=== PATIENT | male | born 1945 ===

== ENCOUNTER 2016-08-26 17:01 | Emergency (ER) | payer MEDICARE, OTHER ==
[2016-08-26 17:17] VITALS: BP 117/62; PULSE 79; RESP 16; TEMP 97.8; O2SAT 94
[2016-08-26] MEDS ORDERED: Tmp-Smz 800 mg-160 mg DS Tab PO STA (17:45)
[2016-08-26] MEDS ORDERED: TDAP Vaccine 0.5 mL Syr IM ONE (17:45)
--- NOTE | 2016-08-26 18:01 | ED PDOC ---
Upper Extremity Pain/Injury Time Seen by Provider: 08/26/16 17:41 Chief Complaint (Nursing): Abnormal Skin Integrity Chief Complaint (Provider): Left Forearm Laceration History Per: Patient History/Exam Limitations: no limitations Onset/Duration Of Symptoms: Days (sustained last night (>24hrs [employer])) Current Symptoms Are (Timing): Still Present Additional Complaint(s): Eddie Aly is a 71 year old right hand dominant male, who presents to the ED on 08/26/16 for the evaluation of a laceration on his left forearm, sustained last night when he was taking out the garbage and cut arm on piece of wire that was sticking out. Injury occurred yesterday at 4 pm, no medical attention was sought yesterday at time of injury. PMD: Dr. Cazares Past Medical History Reviewed: Historical Data, Nursing Documentation, Vital Signs Vital Signs: Last Vital Signs Temp 97.8 F 08/26/16 17:15 Pulse 79 08/26/16 17:15 Resp 16 08/26/16 17:15 BP 117/62 08/26/16 17:15 Pulse Ox 94 L 08/26/16 17:15 - Medical History PMH: Anxiety, Arthritis, Asthma, CAD, COPD, CVA, Diabetes (type II), Emphysema, HTN, Hypercholesterolemia, Migraine Other PMH: vertigo, syncope - Surgical History Surgical History: Cholecystectomy, Coronary Stent (5 stents) - Family History Family History: States: No Known Family Hx - Living Arrangements Living Arrangements: With Family - Social History Current smoker - smoking cessation education provided: Yes (occasional) Alcohol: None Drugs: Denies - Immunization History Hx Tetanus Toxoid Vaccination: Yes (2015 per previous documentation) - Home Medications Home Medications: Ambulatory Orders Medication Instructions Recorded Aspirin [Aspirin EC] 81 mg PO DAILY 05/19/15 Clopidogrel [Plavix] 75 mg PO DAILY 05/19/15 Sitagliptin Phosphate [Januvia] 50 mg PO DAILY 05/19/15 Valsartan [Diovan] 40 mg PO DAILY 05/19/15 Tramadol HCl [Ultram] 50 mg PO BID PRN #30 tablet 08/12/15 [place]-3 Acid Ethyl Esters [Lovaza] 1 cap PO DAILY 08/13/15 Simvastatin [Zocor] 1 tab PO DAILY 08/13/15 Albuterol HFA [Ventolin HFA 90 2 puff IH Q4 PRN #1 unit 03/10/16 mcg/actuation (8 g)] Azithromycin [Zithromax] 250 mg PO DAILY #6 tab 03/10/16 DiphenhydrAMINE [Benadryl] 25 mg PO TID #12 cap 03/10/16 Triamcinolone Acetonide [Nasacort 1 spray NS DAILY #1 unit 03/10/16 Allergy 24Hr] Sulfamethoxazole/Trimethoprim 1 tab PO BID #14 tab 08/26/16 [Bactrim DS 800 mg-160 mg] - Allergies Allergies/Adverse Reactions: Allergies Allergy/AdvReac Type Severity Reaction Status Date / Time Penicillins Allergy RASH Verified 08/26/16 17:14 Review of Systems ROS Statement: Except As Marked, All Systems Reviewed And Found Negative Constitutional: Negative for: Fever Musculoskeletal: Positive for: Arm Pain (laceration to left forearm sustained yesterday) Physical Exam - Reviewed Nursing Documentation Reviewed: Yes Vital Signs Reviewed: Yes - Physical Exam Appears: Positive for: Well, Non-toxic, No Acute Distress Skin: Negative for: Rash Eye Exam: Positive for: Normal appearance Extremity: Positive for: Normal ROM (FROM of all joints of right arm), Capillary Refill (<2 seconds, neurovascularly intact), Other (3.0 cm superficial /horizontal laceration noted to volar aspect of left forearm; no active bleeding , N/V intact) Neurologic/Psych: Positive for: Alert, Oriented. Negative for: Motor/Sensory Deficits - ECG O2 Sat by Pulse Oximetry: 94 (RA) Pulse Ox Interpretation: Normal Medical Decision Making Medical Decision Makin:41 Initial Impression: forearm laceration Initial Plan: * Bactrim 1 tab PO Unable to repair wound with sutures as injury occurred >24 hours prior to arrival and suturing at this time would increase risk of infection. Procedure Note: Laceration was cleansed with both normal saline and betadine, steri-strips were used to approximate wound edges. Patient tolerated procedure well with no immediate complications. 18:42 Patient is medically stable and requires no further treatment in the ED at this time. Patient will be discharged home with Rx for Bactrim and instructions to take OTC tylenol for pain. Counseling was provided and all questions were answered regarding diagnosis and need for follow up with his PMD. There is agreement to discharge plan. Return if symptoms persist or worsen. Clinical Impression: arm laceration Scribe Attestation: Documented by Yancy Kwon, acting as a scribe for Michell Downs PA-C. Provider Scribe Attestation: All medical record entries made by the Scribe were at my direction and personally dictated by me. I have reviewed the chart and agree that the record accurately reflects my personal performance of the history, physical exam, medical decision making, and the department course for this patient. I have also personally directed, reviewed, and agree with the discharge instructions and disposition. Disposition - Clinical Impression Clinical Impression: Arm laceration - Patient ED Disposition Is Patient to be Admitted: No Counseled Patient/Family Regarding: Diagnosis, Need For Followup, Rx Given - Disposition Referrals: Ze Cazares MD [Primary Care Provider] - Disposition: Routine/Home Disposition Time: 18:42 Condition: STABLE Additional Instructions: Keep wound clean and dry. Allow steri-strips to fall off on their own. Tylenol as needed for pain. Wound check in 2-3 days with primary care doctor or return any time to ED if acutely worse. Prescriptions: Sulfamethoxazole/Trimethoprim [Bactrim DS 800 mg-160 mg] 1 tab PO BID #14 tab Instructions: Laceration (ED), Steristrips (ED)
[2016-08-26] MEDS ORDERED: Tmp-Smz 800 mg-160 mg DS Tab ONE (18:39)
== END 2016-08-26 19:50 | disposition home or self-care (01) ==
LOC: H.ER 17:01
DX: S41.112A Laceration without foreign body of left upper arm, initial encounter (principal); W22.8XXA Striking against or struck by other objects, initial encounter; Y92.008 Other place in unspecified non-institutional (private) residence as the place of occurrence of the external cause; E11.9 Type 2 diabetes mellitus without complications; E78.00 Pure hypercholesterolemia, unspecified; F17.200 Nicotine dependence, unspecified, uncomplicated; F41.9 Anxiety disorder, unspecified; I10 Essential (primary) hypertension; I25.10 Atherosclerotic heart disease of native coronary artery without angina pectoris; Z86.73 Personal history of transient ischemic attack (TIA), and cerebral infarction without residual deficits; Z88.0 Allergy status to penicillin; Z95.5 Presence of coronary angioplasty implant and graft; Z79.82 Long term (current) use of aspirin; J44.9 Chronic obstructive pulmonary disease, unspecified

== ENCOUNTER 2016-10-02 12:52 | Observation (INO) | payer MEDICARE, OTHER ==
[2016-10-02] MEDS ORDERED: Albuterol-Ipratrop 3 mg / 0.5 (3 ml) UD IH STA ×2 (13:44→13:45)
--- NOTE | 2016-10-02 13:49 | ED PDOC ---
HPI: CCC, URI, Sore Throat Time Seen by Provider: 10/02/16 13:28 Chief Complaint (Nursing): Cough, Cold, Congestion Chief Complaint (Provider): Cough History Per: Patient History/Exam Limitations: no limitations Have you had recent travel within the past 21 days to any of the following countries: [place], [place], [place] or [place]?: No Onset/Duration Of Symptoms: Days (3wks) Current Symptoms Are (Timing): Still Present Associated Symptoms: Sore Throat, Cough, Sputum, Other (SOB) Additional Complaint(s): The pt is a 71yo female with Hx of COPD, presents to the ED for evaluation of a productive cough with thick, white sputum present for the past 3 weeks. Pt reports using inhalers, steroids as well as antibiotics with no improvement. Currently, pt denies any other medical complaints. Past Medical History Reviewed: Historical Data, Nursing Documentation, Vital Signs Vital Signs: Last Vital Signs Temp 97.5 F L 10/02/16 13:23 Pulse 75 10/02/16 13:23 Resp 20 10/02/16 13:23 BP 111/54 L 10/02/16 13:23 Pulse Ox 94 L 10/02/16 13:51 - Medical History PMH: Anxiety, Arthritis, Asthma, CAD, COPD, CVA, Diabetes (type II), Emphysema, Gall Bladder Disease, HTN, Hypercholesterolemia, Migraine, Pneumonia Denies: Alzheimer's Disease, Anemia, Atrial Fibrillation, Bipolar Disorder, Bronchitis, Cardia Arrhythmia, CHF, Crohn's Disease, Dementia, Depression, Diverticulitis, Fractures, Gastritis, HIV, Hyperthyroidism, Hypothyroidism, Kidney Stones, Mitral Valve Prolapse, Multiple Sclerosis, Osteoporosis, Pancreatitis, Paranoia, Parkinson's Disease, Peripheral Edema, Post Traumatic Stress Disorder, Pulmonary Embolism, Chronic Kidney Disease, Rheumatoid Arthritis, Schizophrenia, Seizures, Sickle Cell Disease, Sexually Transmitted Disease, Sleep Apnea, TIA - Surgical History Surgical History: Cholecystectomy, Coronary Stent (5 stents) Denies: Appendectomy, CABG, Carotid Endarterectomy, Pacemaker, Tonsillectomy - Family History Family History: States: Unknown Family Hx - Immunization History Hx Tetanus Toxoid Vaccination: Yes (2015 per previous documentation) - Home Medications Home Medications: Ambulatory Orders Medication Instructions Recorded Aspirin [Aspirin EC] 81 mg PO DAILY 05/19/15 Clopidogrel [Plavix] 75 mg PO DAILY 05/19/15 Sitagliptin Phosphate [Januvia] 50 mg PO DAILY 05/19/15 Valsartan [Diovan] 40 mg PO DAILY 05/19/15 Tramadol HCl [Ultram] 50 mg PO BID PRN #30 tablet 08/12/15 [place]-3 Acid Ethyl Esters [Lovaza] 1 cap PO DAILY 08/13/15 Simvastatin [Zocor] 1 tab PO DAILY 08/13/15 Albuterol HFA [Ventolin HFA 90 2 puff IH Q4 PRN #1 unit 03/10/16 mcg/actuation (8 g)] Azithromycin [Zithromax] 250 mg PO DAILY #6 tab 03/10/16 DiphenhydrAMINE [Benadryl] 25 mg PO TID #12 cap 03/10/16 Triamcinolone Acetonide [Nasacort 1 spray NS DAILY #1 unit 03/10/16 Allergy 24Hr] Sulfamethoxazole/Trimethoprim 1 tab PO BID #14 tab 08/26/16 [Bactrim DS 800 mg-160 mg] - Allergies Allergies/Adverse Reactions: Allergies Allergy/AdvReac Type Severity Reaction Status Date / Time Penicillins Allergy RASH Verified 10/02/16 13:23 Review of Systems ROS Statement: Except As Marked, All Systems Reviewed And Found Negative Respiratory: Positive for: Cough, Shortness of Breath, Sputum Physical Exam - Reviewed Nursing Documentation Reviewed: Yes Vital Signs Reviewed: Yes - Physical Exam Appears: Positive for: Well, Non-toxic, Uncomfortable Head Exam: Positive for: ATRAUMATIC, NORMAL INSPECTION, NORMOCEPHALIC Skin: Positive for: Normal Color Eye Exam: Positive for: Normal appearance Neck: Positive for: Normal, Supple Cardiovascular/Chest: Positive for: Regular Rate, Rhythm Respiratory: Positive for: Rhonchi (scattered), Wheezing (b/l expitory), Respiratory Distress (mild) Gastrointestinal/Abdominal: Positive for: Normal Exam Back: Positive for: Normal Inspection Extremity: Positive for: Normal ROM Neurologic/Psych: Positive for: Alert, Oriented - ECG O2 Sat by Pulse Oximetry: 94 (RA) Medical Decision Making Medical Decision Making: Time: 1350 Impression: Cough, URI Plan: * VBG * CBC * Duoneb 3ml INH * Solumedrol 125 mg IVP * Reassess Scribe Attestation: Documented by Renate Hoyt acting as a scribe for Jonathon Menjivar MD. Provider Attestation: All medical record entries made by the Scribe were at my direction and personally dictated by me. I have reviewed the chart and agree that the record accurately reflects my personal performance of the history, physical exam, medical decision making, and the department course for this patient. I have also personally directed, reviewed, and agree with the discharge instructions and disposition. Disposition - Clinical Impression Clinical Impression: Bronchitis, COPD exacerbation - Patient ED Disposition Is Patient to be Admitted: Yes - Disposition Disposition Time: 14:44 Condition: FAIR - Pt Status Changed To: Hospital Disposition Of: Observation - POA Present On Arrival: None
[2016-10-02] MEDS ORDERED: Albuterol-Ipratrop 3 mg / 0.5 (3 ml) UD ONE (13:54)
[2016-10-02 14:12] LABS: BASO # 0.1 K/uL (0.0-0.2); BASO % 0.7 % (0.0-2.0); EOS # 0.3 K/uL (0.0-0.7); EOS % 3.5 % (0.0-4.0); LYMPH % 19.9 % (20.0-40.0); MEAN CELL VOLUME 85.5 fl (80.0-94.0); MEAN CORPUSCULAR HEMOGLOBIN 27.9 pg (27.0-31.0); MEAN CORPUSCULAR HGB CONC 32.7 g/dL (33.0-37.0); MEAN PLATELET VOLUME 9.1 fl (7.2-11.7); MONO # 0.8 K/uL (0.0-0.8); NEUT # 6.8 K/uL (1.8-7.0); NEUT % 67.9 % (50.0-75.0)
[2016-10-02 14:23] LABS: VENOUS BLOOD GAS BASE EXCESS 5.1 mmol/L (0.0-2.0); VENOUS BLOOD GAS PCO2 57 mmHg (40-60); VENOUS BLOOD PH 7.36 (7.32-7.43)
[2016-10-02] MEDS ORDERED: Azithromycin 500 MG in Sodium Chloride 0.9% 250 ML IVPB STA (14:40)
[2016-10-02] MEDS ORDERED: Promethazine 6.25 MG/5 ML CUP PO PRN (14:45)
[2016-10-02 14:49] LABS: ALB/GLOB RATIO 1.7 (1.0-2.1); BILIRUBIN,TOTAL 0.2 mg/dl (0.2-1.3); CALCIUM 9.5 mg/dL (8.4-10.2); POTASSIUM 4.2 MMOL/L (3.6-5.0); TOTAL PROTEIN 7.4 G/DL (6.3-8.2)
--- NOTE | 2016-10-02 15:10 | RAD ---
HISTORY: sob cough COMPARISON: Comparison chest 03/10/2016. TECHNIQUE: Chest PA and lateral FINDINGS: LUNGS: Mild bibasilar atelectasis right greater than left. Developing right lower lobe infiltrate could be excluded followup radiographs. . PLEURA: No significant pleural effusion identified. No pneumothorax apparent. CARDIOVASCULAR: Normal. OSSEOUS STRUCTURES: Mild multilevel degenerative spondylosis of the thoracic spine alba VISUALIZED UPPER ABDOMEN: Normal. OTHER FINDINGS: None. IMPRESSION: Mild bibasilar atelectasis right greater than left. Developing infiltrate could be excluded followup radiographs
[2016-10-02] MEDS ORDERED: VALSARTAN 40 MG PO SCH (22:30)
[2016-10-02] MEDS: guaiFENesin-DM 600-30 mg ER Tab PO SCH (22:44)
[2016-10-02] MEDS: methylPREDNISolone 60 MG in Sodium Chloride 0.9% 50 ML IVPB SCH (22:45)
[2016-10-03 08:15] LABS: HEMATOCRIT 37.7 % (35.0-51.0); MEAN CELL VOLUME 85.1 fl (80.0-94.0); MEAN CORPUSCULAR HEMOGLOBIN 28.4 pg (27.0-31.0); MEAN CORPUSCULAR HGB CONC 33.3 g/dL (33.0-37.0); MEAN PLATELET VOLUME 9.4 fl (7.2-11.7); PLATELET COUNT 204 K/uL (130-400); RED CELL DISTRIBUTION WIDTH 13.3 % (11.5-14.5)
[2016-10-03] MEDS: Albuterol-Ipratrop 3 mg / 0.5 (3 ml) UD INH PRN ×2 (08:30→12:02)
[2016-10-03] MEDS: guaiFENesin-DM 600-30 mg ER Tab PO SCH ×2 (08:49→16:42)
[2016-10-03 08:56] LABS: ALB/GLOB RATIO 1.6 (1.0-2.1); ALKALINE PHOSPHATASE 37 U/L (38-126); ALT/SGPT 30 U/L (21-72); AST/SGOT 20 U/L (17-59); BILIRUBIN,TOTAL 0.2 mg/dl (0.2-1.3); BLOOD UREA NITROGEN 23 mg/dl (9-20); CALCIUM 9.3 mg/dL (8.4-10.2); CARBON DIOXIDE 26 mmol/L (22-30); CHLORIDE 103 mmol/L (98-107); GFR AFRICAN-AMERICAN > 60; GLUCOSE,RANDOM 137 mg/dL (75-110); POTASSIUM 4.7 MMOL/L (3.6-5.0); SODIUM 138 mmol/l (132-148); TOTAL PROTEIN 6.9 G/DL (6.3-8.2)
[2016-10-03] MEDS ORDERED: Pantoprazole 40 mg EC Tab PO SCH (09:00)
[2016-10-03] MEDS ORDERED: Azithromycin 500 MG in Sodium Chloride 0.9% 250 ML IVPB SCH (09:00)
--- NOTE | 2016-10-03 09:38 | CP.PCM.HP ---
History of Present Illness - History of Present Illness History of Present Illness: pt admitted for copd exacerbation. at present pt is comfortable w/o distress. pt has been tx for this exacerbation outpt x 1-2 wks. is afebrile and bw is noted. ?? elevation in wbc overnight likely from solumedrol in er. Present on Admission - Present on Admission Any Indicators Present on Admission: No Review of Systems - Respiratory Respiratory: As Per HPI, Cough, Chest Congestion Past Patient History - Past Medical History & Family History Past Medical History?: Yes - Past Social History Smoking Status: Former Smoker - CARDIAC Hx Cardiac Disorders: Yes Hx Hypercholesterolemia: Yes Hx Hypertension: Yes - PULMONARY Hx Respiratory Disorders: Yes Hx Asthma: Yes Hx Chronic Obstructive Pulmonary Disease (COPD): Yes Hx Emphysema: Yes Hx Pneumonia: Yes - NEUROLOGICAL Hx Neurological Disorder: Yes HX Cerebrovascular Accident: Yes Hx Migraine: Yes - HEENT Hx HEENT Problems: Yes Other/Comment: eyeglasses, decreased fluid in eyes - RENAL Hx Chronic Kidney Disease: No - ENDOCRINE/METABOLIC Hx Endocrine Disorders: Yes Hx Diabetes Mellitus Type 1: Yes - HEMATOLOGICAL/ONCOLOGICAL Hx Blood Disorders: No - INTEGUMENTARY Hx Dermatological Problems: No Hx Basil Cell: No Hx Krishnamurthy: No Hx Cellulitis: No Hx Eczema: No Hx Melanoma: No Hx Psoriasis: No Hx Squamous Cell: No - MUSCULOSKELETAL/RHEUMATOLOGICAL Hx Musculoskeletal Disorders: Yes Hx Arthritis: Yes Hx Falls: No - GASTROINTESTINAL Hx Gastrointestinal Disorders: Yes Hx Gall Bladder Disease: Yes - GENITOURINARY/GYNECOLOGICAL Hx Genitourinary Disorders: No - PSYCHIATRIC Hx Psychophysiologic Disorder: Yes Hx Anxiety: Yes Hx Substance Use: No - SURGICAL HISTORY Hx Surgeries: Yes Hx Cholecystectomy: Yes Hx Coronary Stent: Yes (5 stents) - ANESTHESIA Hx Anesthesia: Yes Hx Anesthesia Reactions: No Hx Malignant Hyperthermia: No Meds Allergies/Adverse Reactions: Allergies Allergy/AdvReac Type Severity Reaction Status Date / Time Penicillins Allergy RASH Verified 10/02/16 13:23 Physical Exam - Constitutional Appears: Well, Non-toxic, No Acute Distress - Head Exam Head Exam: ATRAUMATIC, NORMAL INSPECTION, NORMOCEPHALIC - Eye Exam Eye Exam: EOMI, Normal appearance, PERRL Pupil Exam: NORMAL ACCOMODATION, PERRL - ENT Exam ENT Exam: Mucous Membranes Moist, Normal Exam - Neck Exam Neck exam: Positive for: Normal Inspection - Respiratory Exam Respiratory Exam: Wheezes, NORMAL BREATHING PATTERN - Cardiovascular Exam Cardiovascular Exam: REGULAR RHYTHM, RRR, +S1, +S2 - GI/Abdominal Exam GI & Abdominal Exam: Normal Bowel Sounds, Soft. absent: Tenderness - Extremities Exam Extremities exam: Positive for: normal inspection - Back Exam Back exam: NORMAL INSPECTION - Neurological Exam Neurological exam: Alert, CN II-XII Intact, Normal Gait, Oriented x3, Reflexes Normal - Psychiatric Exam Psychiatric exam: Normal Affect, Normal Mood - Skin Skin Exam: Dry, Intact, Normal Color, Warm Results - Vital Signs Recent Vital Signs: Last Vital Signs Temp 98.0 F 10/03/16 08:27 Pulse 77 10/03/16 08:27 Resp 20 10/03/16 08:27 BP 113/65 10/03/16 08:27 Pulse Ox 95 10/03/16 08:27 - Labs Result Diagrams: 10/03/16 05:30 10/03/16 05:30 Labs: Laboratory Results - last 24 hr 10/02/16 10/03/16 10/03/16 21:34 05:26 05:30 WBC 13.0 H RBC 4.43 Hgb 12.6 Hct 37.7 MCV 85.1 MCH 28.4 MCHC 33.3 RDW 13.3 Plt Count 204 MPV 9.4 Neut % (Auto) 54.1 Lymph % (Auto) 17.6 L [place] % (Auto) 27.1 H Eos % (Auto) 1.2 Baso % (Auto) 0.0 Neut # 7.0 Lymph # 2.3 [place] # 3.5 H Eos # 0.2 Baso # 0.0 Sodium Potassium Chloride Carbon Dioxide Anion Gap BUN Creatinine Est GFR ( Amer) Est GFR (Non-Af Amer) POC Glucose (mg/dL) 267 H 171 H Random Glucose Calcium Total Bilirubin AST ALT Alkaline Phosphatase Total Protein Albumin Globulin Albumin/Globulin Ratio 10/03/16 05:30 WBC RBC Hgb Hct MCV MCH MCHC RDW Plt Count MPV Neut % (Auto) Lymph % (Auto) [place] % (Auto) Eos % (Auto) Baso % (Auto) Neut # Lymph # [place] # Eos # Baso # Sodium 138 Potassium 4.7 Chloride 103 Carbon Dioxide 26 Anion Gap 14 BUN 23 H Creatinine 1.3 Est GFR ( Amer) > 60 Est GFR (Non-Af Amer) 54 POC Glucose (mg/dL) Random Glucose 137 H Calcium 9.3 Total Bilirubin 0.2 AST 20 ALT 30 Alkaline Phosphatase 37 L Total Protein 6.9 Albumin 4.2 Globulin 2.6 Albumin/Globulin Ratio 1.6 Assessment & Plan (1) DVT prophylaxis Assessment and Plan: scd and ae hose ambulation lovenox if admitted over 24h Status: Acute (2) COPD exacerbation Assessment and Plan: solumedrol mucinex,duonebs zithromax for ?? evolving infiltrate ?? dc tongith or early tomorrow depending on pt condition. Status: Acute (3) DM2 (diabetes mellitus, type 2) Assessment and Plan: fsbg, home meds, dietyaar control Status: Chronic Decision To Admit - Pt Status Changed To: Hospital Disposition Of: Observation - . Bed Request Type: Telemetry Admitting Physician: Chico Farooq
[2016-10-03] MEDS: methylPREDNISolone 60 MG in Sodium Chloride 0.9% 50 ML IVPB SCH (11:33)
[2016-10-03 12:21] LABS: NEUT % 91.4 % (50.0-75.0)
[2016-10-03 12:22] LABS: LYMPH % 5.9 % (20.0-40.0); MONO % 2.6 % (0.0-10.0)
[2016-10-03 12:23] LABS: BASO % 0.1 % (0.0-2.0); NEUT # 12.1 K/uL (1.8-7.0)
[2016-10-03 12:24] LABS: LYMPH # 0.8 K/uL (1.0-4.3); MONO # 0.3 K/uL (0.0-0.8)
[2016-10-03 12:30] LABS: NEUTROPHIL 90 % (42-75); TOTAL CELLS COUNTED 100
[2016-10-03 15:45] VITALS: RESP 18
[2016-10-03 19:43] VITALS: BP 117/60; PULSE 79; TEMP 98.7; O2SAT 95
--- NOTE | 2016-10-05 08:34 | CP.PCM.DIS ---
Provider - Provider Date of Admission: 10/02/16 14:45 Attending physician: Chico Farooq MD Primary care physician: Chico Farooq MD Time Spent in preparation of Discharge (in minutes): 15 Diagnosis - Discharge Diagnosis (1) DVT prophylaxis Status: Acute (2) COPD exacerbation Status: Acute (3) DM2 (diabetes mellitus, type 2) Status: Chronic Hospital Course - Lab Results Lab Results: Most Recent Lab Values WBC 13.0 K/uL (4.8-10.8) H 10/03/16 05:30 RBC 4.43 Mil/uL (4.40-5.90) 10/03/16 05:30 Hgb 12.6 g/dL (12.0-18.0) 10/03/16 05:30 Hct 37.7 % (35.0-51.0) 10/03/16 05:30 MCV 85.1 fl (80.0-94.0) 10/03/16 05:30 MCH 28.4 pg (27.0-31.0) 10/03/16 05:30 MCHC 33.3 g/dL (33.0-37.0) 10/03/16 05:30 RDW 13.3 % (11.5-14.5) 10/03/16 05:30 Plt Count 204 K/uL (130-400) 10/03/16 05:30 MPV 9.4 fl (7.2-11.7) 10/03/16 05:30 Neut % (Auto) 91.4 % (50.0-75.0) H 10/03/16 05:30 Lymph % (Auto) 5.9 % (20.0-40.0) L 10/03/16 05:30 [place] % (Auto) 2.6 % (0.0-10.0) 10/03/16 05:30 Eos % (Auto) 0.0 % (0.0-4.0) 10/03/16 05:30 Baso % (Auto) 0.1 % (0.0-2.0) 10/03/16 05:30 Neut # 12.1 K/uL (1.8-7.0) H 10/03/16 05:30 Lymph # 0.8 K/uL (1.0-4.3) L 10/03/16 05:30 [place] # 0.3 K/uL (0.0-0.8) 10/03/16 05:30 Eos # 0.0 K/uL (0.0-0.7) 10/03/16 05:30 Baso # 0.0 K/uL (0.0-0.2) 10/03/16 05:30 Neutrophils % (Manual) 90 % (42-75) H 10/03/16 05:30 Band Neutrophils % 1 % (0-2) 10/03/16 05:30 Lymphocytes % (Manual) 7 % (20-50) L 10/03/16 05:30 Monocytes % (Manual) 2 % (0-10) 10/03/16 05:30 Platelet Estimate Normal (NORMAL) 10/03/16 05:30 Hypochromasia (manual) Slight 10/03/16 05:30 pO2 41 mm/Hg (30-55) 10/02/16 14:10 VBG pH 7.36 (7.32-7.43) 10/02/16 14:10 VBG pCO2 57 mmHg (40-60) 10/02/16 14:10 VBG HCO3 28.3 mmol/L 10/02/16 14:10 VBG Total CO2 33.9 mmol/L (22-28) H 10/02/16 14:10 VBG O2 Sat (Calc) 76.9 % (40-65) H 10/02/16 14:10 VBG Base Excess 5.1 mmol/L (0.0-2.0) H 10/02/16 14:10 VBG Potassium 4.4 mmol/L (3.6-5.2) 10/02/16 14:10 Sodium 140.0 mmol/L (132-148) 10/02/16 14:10 Chloride 105.0 mmol/L (98-107) 10/02/16 14:10 Glucose 119 mg/dL (75-110) H 10/02/16 14:10 Lactate 1.5 mmol/L (0.7-2.1) 10/02/16 14:10 FiO2 21.0 % 10/02/16 14:10 Sodium 138 mmol/l (132-148) 10/03/16 05:30 Potassium 4.7 MMOL/L (3.6-5.0) 10/03/16 05:30 Chloride 103 mmol/L (98-107) 10/03/16 05:30 Carbon Dioxide 26 mmol/L (22-30) 10/03/16 05:30 Anion Gap 14 (10-20) 10/03/16 05:30 BUN 23 mg/dl (9-20) H 10/03/16 05:30 Creatinine 1.3 mg/dL (0.8-1.5) 10/03/16 05:30 Est GFR ( Amer) > 60 10/03/16 05:30 Est GFR (Non-Af Amer) 54 10/03/16 05:30 POC Glucose (mg/dL) 125 mg/dL (65-110) H 10/03/16 16:05 Random Glucose 137 mg/dL (75-110) H 10/03/16 05:30 Calcium 9.3 mg/dL (8.4-10.2) 10/03/16 05:30 Total Bilirubin 0.2 mg/dl (0.2-1.3) 10/03/16 05:30 AST 20 U/L (17-59) 10/03/16 05:30 ALT 30 U/L (21-72) 10/03/16 05:30 Alkaline Phosphatase 37 U/L (38-126) L 10/03/16 05:30 Total Protein 6.9 G/DL (6.3-8.2) 10/03/16 05:30 Albumin 4.2 g/dL (3.5-5.0) 10/03/16 05:30 Globulin 2.6 gm/dL (2.2-3.9) 10/03/16 05:30 Albumin/Globulin Ratio 1.6 (1.0-2.1) 10/03/16 05:30 Venous Blood Potassium 4.4 mmol/L (3.6-5.2) 10/02/16 14:10 Discharge Exam - Head Exam Head Exam: ATRAUMATIC, NORMAL INSPECTION, NORMOCEPHALIC Discharge Plan - Discharge Medications Prescriptions: Azithromycin [Zithromax] 250 mg PO DAILY #4 tab guaiFENesin/Dextromethorphan [Mucinex-DM 600-30 mg] 2 tab PO BID #30 tab predniSONE [Prednisone] 50 mg PO DAILY #15 tab Promethazine [Phenergan Syrup] 6.25 mg PO Q6 PRN #250 ml PRN Reason: Cough - Follow Up Plan Condition: FAIR Disposition: HOME/ ROUTINE Additional Instructions: final dx-copd exacerbation no fidstress, wheezing per rn. no f/c, n/v/d meds excribed f/u rmg 1-2 days, rted prn Referrals: Chico Farooq MD [Primary Care Provider] -
== END 2016-10-03 19:50 | disposition home or self-care (01) ==
LOC: H.ER 12:52 → H.ERHOLD 14:45 → H.TEL 20:15
PROVIDERS: ADMIT Family Medicine; ATTEND Family Medicine
DX: J44.1 Chronic obstructive pulmonary disease with (acute) exacerbation (principal); I25.10 Atherosclerotic heart disease of native coronary artery without angina pectoris; Z86.73 Personal history of transient ischemic attack (TIA), and cerebral infarction without residual deficits; E11.9 Type 2 diabetes mellitus without complications; E78.00 Pure hypercholesterolemia, unspecified; I10 Essential (primary) hypertension; Z79.02 Long term (current) use of antithrombotics/antiplatelets; Z79.82 Long term (current) use of aspirin; Z95.5 Presence of coronary angioplasty implant and graft
CPT/HCPCS: 36415; 71020; 80053; 82803; 82948; 85025; 87040; 94640; 96374; 99285; G0378; J0456; J2930

== ENCOUNTER 2017-03-07 10:47 | Emergency (ER) | payer MEDICARE, OTHER ==
[2017-03-07 10:51] VITALS: BP 103/70; PULSE 71; RESP 17; TEMP 97.8; O2SAT 95; BMI 31.1
--- NOTE | 2017-03-07 11:18 | ED PDOC ---
Lower Extremity Pain/Injury Time Seen by Provider: 03/07/17 11:07 Chief Complaint (Provider): Fall History Per: Patient Onset/Duration Of Symptoms: Days ([employer]) Current Symptoms Are (Timing): Still Present Additional Complaint(s): Pt. fell while walking accidentally when slipping on something on the ground. Fell forward. Did not hit head. landed on knees and R arm. Pt. has pain to the left knee and right elbow. Got back up and ambulated. No numbness, tingles , back pain, headache, neck pain. No dizziness. Past Medical History Reviewed: Nursing Documentation, Vital Signs Vital Signs: Last Vital Signs Temp 97.8 F 03/07/17 10:51 Pulse 71 03/07/17 10:51 Resp 17 03/07/17 10:51 BP 103/70 03/07/17 10:51 Pulse Ox 95 03/07/17 10:51 - Medical History PMH: Anxiety, Arthritis, Asthma, CAD, Diabetes (type II), HTN, Hypercholesterolemia Denies: Alzheimer's Disease, Anemia, Atrial Fibrillation, Bipolar Disorder, Bronchitis, Cardia Arrhythmia, CHF, Crohn's Disease, Dementia, Depression, Diverticulitis, Fractures, Gastritis, HIV, Hyperthyroidism, Hypothyroidism, Kidney Stones, Mitral Valve Prolapse, Multiple Sclerosis, Osteoporosis, Pancreatitis, Paranoia, Parkinson's Disease, Peripheral Edema, Post Traumatic Stress Disorder, Pulmonary Embolism, Chronic Kidney Disease, Rheumatoid Arthritis, Schizophrenia, Seizures, Sickle Cell Disease, Sexually Transmitted Disease, Sleep Apnea, TIA - Surgical History Surgical History: Cholecystectomy, Coronary Stent (5 stents) Denies: Appendectomy, CABG, Carotid Endarterectomy, Pacemaker, Tonsillectomy - Family History Family History: States: Unknown Family Hx - Social History Current smoker - smoking cessation education provided: No Alcohol: None Drugs: Denies - Immunization History Hx Tetanus Toxoid Vaccination: Yes (2015 per previous documentation) - Home Medications Home Medications: Ambulatory Orders Medication Instructions Recorded Aspirin [Aspirin EC] 81 mg PO DAILY 05/19/15 Sitagliptin Phosphate [Januvia] 50 mg PO DAILY 05/19/15 Valsartan [Diovan] 40 mg PO DAILY 05/19/15 Atorvastatin [Lipitor] 40 mg PO DAILY 10/02/16 Fenofibrate Nanocrystallized 145 mg PO DAILY 10/02/16 [Tricor] Pantoprazole Sodium [Protonix] 40 mg PO DAILY 10/02/16 Azithromycin [Zithromax] 250 mg PO DAILY #4 tab 10/03/16 Promethazine [Phenergan Syrup] 6.25 mg PO Q6 PRN #250 ml 10/03/16 guaiFENesin/Dextromethorphan 2 tab PO BID #30 tab 10/03/16 [Mucinex-DM 600-30 mg] predniSONE [Prednisone] 50 mg PO DAILY #15 tab 10/03/16 - Allergies Allergies/Adverse Reactions: Allergies Allergy/AdvReac Type Severity Reaction Status Date / Time Penicillins Allergy RASH Verified 10/02/16 13:23 Review of Systems Constitutional: Negative for: Weakness Cardiovascular: Negative for: Chest Pain Respiratory: Negative for: Shortness of Breath Gastrointestinal: Negative for: Nausea, Vomiting, Abdominal Pain, Diarrhea Musculoskeletal: Positive for: Arm Pain, Leg Pain Skin: Negative for: Rash Neurological: Negative for: Weakness, Numbness, Incoordination, Confusion Physical Exam - Reviewed Nursing Documentation Reviewed: Yes Vital Signs Reviewed: Yes - Physical Exam Appears: Positive for: Non-toxic, No Acute Distress Head Exam: Positive for: ATRAUMATIC, NORMAL INSPECTION, NORMOCEPHALIC Skin: Positive for: Normal Color, Warm, DRY Eye Exam: Positive for: EOMI, Normal appearance, PERRL Neck: Positive for: Normal, Painless ROM, Supple Cardiovascular/Chest: Positive for: Regular Rate, Rhythm Respiratory: Positive for: CNT, Normal Breath Sounds Pulses-Dorsalis Pedis (L): 2+ Pulses-Dorsalis Pedis (R): 2+ Pulses-Radial (R): 2+ Back: Positive for: Normal Inspection. Negative for: L CVA Tenderness, R CVA Tenderness, Vertebral Tenderness Extremity: Positive for: Normal ROM (no laxity to knees), Tenderness (R elbow lateral with 1cm diameter echymosis; L knee 2cm diameter abrasion; L tib/fib 4cm length abrasion and swelling; R knee 1 cm abrasion ). Negative for: Calf Tenderness Neurologic/Psych: Positive for: Alert, glass inserter II-XII, Oriented. Negative for: Motor/Sensory Deficits, Aphasia, Facial Droop - ECG O2 Sat by Pulse Oximetry: 95 - Radiology X-Ray: Interpreted by Me, Viewed By Me X-Ray Interpretation: No Acute Disease - Progress ED Course And Treament: 1247: Stable. AAOx3. Pain free. Tolerated PO. Fu with pcp. Ambulated. Disposition - Clinical Impression Clinical Impression: Muscle contusion, Abrasion - Patient ED Disposition Is Patient to be Admitted: No Counseled Patient/Family Regarding: Studies Performed, Diagnosis, Need For Followup - Disposition Referrals: [facility] [Outside] - 03/08/17 Disposition: Routine/Home Disposition Time: 12:48 Condition: STABLE Additional Instructions: Return if not better in 3 days. Instructions: Contusion in Adults (ED), Abrasion (ED) Print Language: SAMI
--- NOTE | 2017-03-07 14:46 | RAD ---
PROCEDURE: Bilateral Knee Radiographs. HISTORY: Pain. No history of recent/ related trauma provided COMPARISON: 06/24/2013 FINDINGS: BONES: Right Knee: Normal. No fracture. Left Knee: Normal. No fracture. JOINTS: Right Knee: Normal. No osteoarthritis. Left knee: Normal. No osteoarthritis. SOFT TISSUES: Right Knee: Normal. Left Knee: Normal. JOINT EFFUSION: Right Knee: None. Left Knee: None. OTHER FINDINGS: None. IMPRESSION: No acute findings related to/accounting for the clinical presentation. No significant interval change compared to the prior examination(s).
--- NOTE | 2017-03-07 14:48 | RAD ---
PROCEDURE: Left tibia and fibula HISTORY: Pain. No history of recent/ related trauma provided COMPARISON: TECHNIQUE: Standard protocol for this study/examination. FINDINGS: No significant/acute osseous, articular or soft tissue abnormalities. IMPRESSION: No acute findings related to/accounting for the clinical presentation. Concordant results with the preliminary interpretation rendered by the emergency department physician procedure.
--- NOTE | 2017-03-07 14:53 | RAD ---
PROCEDURE: Radiographs of the right elbow. HISTORY: pain COMPARISON: No prior. FINDINGS: BONES: Normal. No fracture. JOINTS: Normal. No osteoarthritis. SOFT TISSUES: Normal. JOINT EFFUSION: None. OTHER FINDINGS: None. IMPRESSION: Unremarkable radiographs of the right elbow. Concordant results with the preliminary interpretation rendered by the emergency department physician procedure.
== END 2017-03-07 12:55 | disposition home or self-care (01) ==
LOC: H.ER 10:47
DX: S80.212A Abrasion, left knee, initial encounter (principal); M25.521 Pain in right elbow; W19.XXXA Unspecified fall, initial encounter; Y92.89 Other specified places as the place of occurrence of the external cause; M79.1 Myalgia; E11.9 Type 2 diabetes mellitus without complications; E78.00 Pure hypercholesterolemia, unspecified; F41.9 Anxiety disorder, unspecified; I10 Essential (primary) hypertension; I25.10 Atherosclerotic heart disease of native coronary artery without angina pectoris; Z79.82 Long term (current) use of aspirin; Z88.0 Allergy status to penicillin; Z95.5 Presence of coronary angioplasty implant and graft

== ENCOUNTER 2017-07-08 00:04 | Inpatient (IN) | payer MEDICARE, OTHER ==
[2017-07-08 00:04] VITALS: BMI 31.1
[2017-07-08] MEDS ORDERED: Sodium Chloride 0.9% 1,000 ML IV STA ×2 (00:28→00:36)
[2017-07-08] MEDS ORDERED: Albuterol-Ipratrop 3 mg / 0.5 (3 ml) UD INH STA (00:34)
[2017-07-08] MEDS ORDERED: Promethazine/Cod 6.25mg-10mg/5ml Syr UD PO STA (00:35)
[2017-07-08] MEDS ORDERED: levoFLOXacin 750 mg in D5W 150 ML BAG IVPB STA (00:48)
--- NOTE | 2017-07-08 00:49 | ED PDOC ---
HPI: Influenza Time Seen by Provider: 07/08/17 00:20 Chief Complaint: Shortness Of Breath Chief Complaint (Provider): Flu-Like Symptoms History Per: Patient Exam Limitations: no limitations Onset/Duration Of Symptoms: Days (x2) Symptoms include: fever, headache, bodyaches, cough, other (hoarse voice) Hx Influenza Vaccination: Yes Risk factors for flu complications: Yes: adult > 65 years Additional complaint(s):: 72 year old male presents to ED with complaints of flu-like symptoms x2 days and has a past medical history of HTN, diabetes mellitus, asthma, and CHF. (+) fever, cough, headache, chills, body aches, generalized weakness, malaise, and vocal hoarseness. Patient confirms he received the flu vaccine this flu season. PCP: Roshan Downey Past Medical History Reviewed: Historical Data, Nursing Documentation, Vital Signs Vital Signs: Last Vital Signs Temp 101.3 F H 07/08/17 00:10 Pulse 97 H 07/08/17 00:10 Resp 16 07/08/17 00:10 BP 115/62 07/08/17 00:10 Pulse Ox 91 L 07/08/17 00:10 - Medical History PMH: Anxiety, Arthritis, Asthma, CAD, COPD, CVA, Diabetes (type II), Emphysema, Gall Bladder Disease, HTN, Hypercholesterolemia, Migraine, Pneumonia Denies: Alzheimer's Disease, Anemia, Atrial Fibrillation, Bipolar Disorder, Bronchitis, Cardia Arrhythmia, CHF, Crohn's Disease, Dementia, Depression, Diverticulitis, Fractures, Gastritis, HIV, Hyperthyroidism, Hypothyroidism, Kidney Stones, Mitral Valve Prolapse, Multiple Sclerosis, Osteoporosis, Pancreatitis, Paranoia, Parkinson's Disease, Peripheral Edema, Post Traumatic Stress Disorder, Pulmonary Embolism, Chronic Kidney Disease, Rheumatoid Arthritis, Schizophrenia, Seizures, Sickle Cell Disease, Sexually Transmitted Disease, Sleep Apnea, TIA - Surgical History Surgical History: Cholecystectomy, Coronary Stent (5 stents) Denies: Appendectomy, CABG, Carotid Endarterectomy, Pacemaker, Tonsillectomy - Family History Family History: States: Unknown Family Hx - Social History Current smoker - smoking cessation education provided: No Ex-Smoker (has not smoked in the last 12 months): No Alcohol: None Drugs: Denies - Immunization History Hx Tetanus Toxoid Vaccination: Yes (2015 per previous documentation) - Home Medications Home Medications: Ambulatory Orders Medication Instructions Recorded Aspirin [Aspirin EC] 81 mg PO DAILY 05/19/15 Sitagliptin Phosphate [Januvia] 50 mg PO DAILY 05/19/15 Valsartan [Diovan] 40 mg PO DAILY 05/19/15 Atorvastatin [Lipitor] 40 mg PO DAILY 10/02/16 Fenofibrate Nanocrystallized 145 mg PO DAILY 10/02/16 [Tricor] Pantoprazole Sodium [Protonix] 40 mg PO DAILY 10/02/16 Azithromycin [Zithromax] 250 mg PO DAILY #4 tab 10/03/16 Promethazine [Phenergan Syrup] 6.25 mg PO Q6 PRN #250 ml 10/03/16 guaiFENesin/Dextromethorphan 2 tab PO BID #30 tab 10/03/16 [Mucinex-DM 600-30 mg] predniSONE [Prednisone] 50 mg PO DAILY #15 tab 10/03/16 Naproxen [Naprosyn] 500 mg PO Q12H #20 tab 03/11/17 - Allergies Allergies/Adverse Reactions: Allergies Allergy/AdvReac Type Severity Reaction Status Date / Time Penicillins Allergy RASH Verified 07/08/17 00:10 Review of Systems ROS Statement: Except As Marked, All Systems Reviewed And Found Negative Constitutional: Positive for: Fever, Chills, Weakness (generalized), Malaise, Other ((+) body aches, vocal hoarseness) Respiratory: Positive for: Cough Neurological: Positive for: Headache Physical Exam - Reviewed Nursing Documentation Reviewed: Yes Vital Signs Reviewed: Yes - Physical Exam Appears: Positive for: Non-toxic, Uncomfortable Skin: Positive for: Normal Color, Warm, Dry Eye Exam: Positive for: Normal appearance Neck: Positive for: Normal, Painless ROM, Supple Cardiovascular/Chest: Positive for: Regular Rate, Rhythm, Tachycardia Respiratory: Positive for: Rales (bilateral), Wheezing (bilateral). Negative for: Normal Breath Sounds, Respiratory Distress Extremity: Positive for: Normal ROM. Negative for: Deformity Neurologic/Psych: Positive for: Alert, Oriented. Negative for: Motor/Sensory Deficits Medical Decision Making Medical Decision Makin Initial impression: flu-like symptoms Initial plan: * EKG * Labs * Lact ACid * CXR * Duonebs 9mL INH * NS IV * Phenergan/Codeine 10mL PO * Solumedrol 125mg ICP * Tamiflu 75mg PO * Acetaminophen 975mg PO * BCx * Peak flow pre/post Tx * Influenza A B * Re-eval 004 CXR: bibasilar infiltrates indicative of PNA. Read by provider. * Levaquin 750mg in 150mL IVPB * Labs * Re-eval * ADMISSION ORDER: INPATIENT MED/SURG under Dr. Farooq for influenza and PNA. 0230 Labs reviewed: significant for elevated WBC count. Flu swab: negative Provider has strong clinical suspicion for influenza due to clinical presentation and will treat accordingly with tamiflu. Patient will be admitted. Case referred to AYUSH Read for [place]. Scribe Attestation: Documented by Aparna Wang acting as a scribe for Dion Barker MD. Scribe Attestation: All medical record entries made by the Scribe were at my direction and personally dictated by me. I have reviewed the chart and agree that the record accurately reflects my personal performance of the history, physical exam, medical decision making, and the department course for this patient. I have also personally directed, reviewed, and agree with the discharge instructions and disposition. - Laboratory Results Result Diagrams: 07/08/17 01:30 07/08/17 01:30 - ECG ECG: Positive for: Interpreted By Me, Viewed By Me ECG Rhythm: Positive for: Sinus Rhythm Interpretation Of Abn EKG: LVH Rate: 98 (EKG at 0009) O2 Sat by Pulse Oximetry: 91 (RA) Pulse Ox Interpretation: Abnormal Disposition - Patient ED Disposition Is Patient to be Admitted: Yes - Disposition Referrals: Roshan Downey MD [Primary Care Provider] - Disposition Time: 00:47 Condition: FAIR Forms: PayParrot (Danish) - Pt Status Changed To: Hospital Disposition Of: Inpatient (MED/SURG) - Admit Certification Admit to Inpatient:: After my assessment, the patient will require hospitalization for at least two midnights. This is because of the severity of symptoms shown, intensity of services needed, and/or the medical risk in this patient being treated as an outpatient.
[2017-07-08] MEDS ORDERED: levoFLOXacin 750 mg in D5W 750 MG/150 ML BAG IVPB STA (00:52)
[2017-07-08] MEDS ORDERED: Albuterol-Ipratrop 3 mg / 0.5 (3 ml) UD ONE (01:12)
[2017-07-08] MEDS ORDERED: Promethazine/Cod 6.25mg-10mg/5ml Syr UD ONE (01:12)
[2017-07-08 01:52] LABS: BASO # 0.1 K/uL (0.0-0.2); BASO % 0.6 % (0.0-2.0); EOS # 0.1 K/uL (0.0-0.7); EOS % 0.5 % (0.0-4.0); HEMOGLOBIN 12.6 g/dL (12.0-18.0); LYMPH # 0.9 K/uL (1.0-4.3); LYMPH % 5.3 % (20.0-40.0); MEAN CELL VOLUME 85.4 fl (80.0-94.0); MEAN CORPUSCULAR HEMOGLOBIN 28.7 pg (27.0-31.0); MEAN CORPUSCULAR HGB CONC 33.6 g/dL (33.0-37.0); MEAN PLATELET VOLUME 8.7 fl (7.2-11.7); MONO # 1.4 K/uL (0.0-0.8); MONO % 8.3 % (0.0-10.0); NEUT # 14.4 K/uL (1.8-7.0); NEUT % 85.3 % (50.0-75.0); NRBC % 0.3 % (0.0-0.0); PLATELET COUNT 168 K/uL (130-400); RBC 4.37 Mil/uL (4.40-5.90); RED CELL DISTRIBUTION WIDTH 13.8 % (11.5-14.5); WHITE BLOOD COUNT 16.9 K/uL (4.8-10.8)
[2017-07-08 02:03] LABS: ALB/GLOB RATIO 1.3 (1.0-2.1); ALBUMIN 4.2 g/dL (3.5-5.0); ALT/SGPT 30 U/L (21-72); AST/SGOT 30 U/L (17-59); BLOOD UREA NITROGEN 21 mg/dl (9-20); CALCIUM 9.1 mg/dL (8.4-10.2); GFR AFRICAN-AMERICAN > 60; GFR NON-AFRICAN AMERICAN 59
[2017-07-08 02:20] LABS: B-TYPE NATRIURETIC PEPTIDE 695 pg/ml (0-900)
[2017-07-08] MEDS ORDERED: levoFLOXacin 750 mg in D5W 750 MG/150 ML BAG IVPB ONE (02:29)
[2017-07-08] MEDS ORDERED: Naproxen 500 MG TAB PO PRN (04:21)
[2017-07-08] MEDS ORDERED: Promethazine 6.25 MG/5 ML CUP PO PRN (04:21)
[2017-07-08 04:30] LABS: BANDS 3 % (0-2); HYPOCHROMIC MODERATE; LARGE PLATELETS PRESENT; LYMPHOCYTE 7 % (20-50); MONOCYTE 5 % (0-10); MYELOCYTE 1 % (0-0); NEUTROPHIL 82 % (42-75); PLATELET ESTIMATE NORMAL (NORMAL); REACTIVE LYMPHOCYTES 2 % (0-0); STOMATOCYTES SLIGHT; TOTAL CELLS COUNTED 100
[2017-07-08] MEDS: Albuterol-Ipratrop 3 mg / 0.5 (3 ml) UD INH SCH ×6 (04:37→23:38)
[2017-07-08 06:40] LABS: HEMOGLOBIN 12.6 g/dL (12.0-18.0); MEAN CELL VOLUME 86.2 fl (80.0-94.0); MEAN CORPUSCULAR HEMOGLOBIN 28.6 pg (27.0-31.0); MEAN CORPUSCULAR HGB CONC 33.2 g/dL (33.0-37.0); RBC 4.41 Mil/uL (4.40-5.90); RED CELL DISTRIBUTION WIDTH 13.8 % (11.5-14.5); WHITE BLOOD COUNT 17.3 K/uL (4.8-10.8)
[2017-07-08 06:45] LABS: ALB/GLOB RATIO 1.3 (1.0-2.1); ALBUMIN 4.1 g/dL (3.5-5.0); ALT/SGPT 30 U/L (21-72); AST/SGOT 29 U/L (17-59); BLOOD UREA NITROGEN 19 mg/dl (9-20); CALCIUM 8.7 mg/dL (8.4-10.2); GFR AFRICAN-AMERICAN > 60; GFR NON-AFRICAN AMERICAN > 60
[2017-07-08] MEDS ORDERED: methylPREDNISolone 60 MG in Sodium Chloride 0.9% 50 ML IVPB SCH (09:00)
--- NOTE | 2017-07-08 09:10 | RAD ---
HISTORY: cough/fever COMPARISON: Chest radiograph dated 10/02/2016 FINDINGS: LUNGS: Questionable bilateral patchy infiltrates. PLEURA: No significant pleural effusion identified, no pneumothorax apparent. CARDIOVASCULAR: Atherosclerotic aortic calcifications. Cardiomediastinal silhouette at the upper limits of normal in size. OSSEOUS STRUCTURES: Unchanged. VISUALIZED UPPER ABDOMEN: Normal. OTHER FINDINGS: None. IMPRESSION: Questionable bilateral patchy infiltrates.
[2017-07-08] MEDS: levoFLOXacin 500 mg in D5W 500 MG/100 ML BAG IVPB SCH (09:33)
[2017-07-08] MEDS: guaiFENesin-DM 600-30 mg ER Tab PO SCH ×2 (09:42→17:16)
[2017-07-08] MEDS: Pantoprazole 40 mg EC Tab PO SCH (09:42)
--- NOTE | 2017-07-08 11:02 | IP.NPCORE ---
Pneumonia Progress Notes - Oxygenation Assessment (REQUIRED) Documented 02: Yes O2 Saturation: 96 Oxygen Delivery Method: Nasal Cannula Date: 07/08/17 Documented P02: No - Blood Cultures (REQUIRED) Culture drawn: Yes - Appropriate Antibiotic Appropriate Antibiotic within 24 hours of Admission:: Yes - Pneumonia Vaccine Pneumonia Vaccine: Yes (After age 65)
[2017-07-08] MEDS: Insulin Regular 100 units/ml SC SCH ×3 (12:30→21:29)
--- NOTE | 2017-07-08 14:29 | CP.PCM.HP ---
History of Present Illness - History of Present Illness History of Present Illness: pt admitted for pna and clinical flu. no f/c, n/v/d at [facility]. c/o cough/ congestion/ hoarseness to voice. was febrile on arrival, cxr noted. levaquin/ tamiflu started in er. bw noted. 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 - Present on Admission Any Indicators Present on Admission: Yes History of Uncontrolled Diabetes: Yes Review of Systems - Constitutional Constitutional: As Per HPI, Fever - EENT Nose/Mouth/Throat: As Per HPI, Sore Throat - Respiratory Respiratory: As Per HPI, Cough, Chest Congestion Past Patient History - Past Medical History & Family History Past Medical History?: Yes - Past Social History Smoking Status: Never Smoked - CARDIAC Hx Cardiac Disorders: Yes Hx Congestive Heart Failure: Yes Hx Hypercholesterolemia: Yes Hx Hypertension: Yes - PULMONARY Hx Respiratory Disorders: Yes Hx Chronic Obstructive Pulmonary Disease (COPD): Yes Hx Pneumonia: Yes - NEUROLOGICAL Hx Alzheimer's Disease: No HX Cerebrovascular Accident: Yes Hx Dementia: No Hx Migraine: Yes Hx Multiple Sclerosis: No Hx Parkinson's Disease: No Hx Seizures: No Hx Transient Ischemic Attacks (TIA): No - HEENT Hx HEENT Problems: Yes Hx Cataracts: Yes Other/Comment: eyeglasses, decreased fluid in eyes - RENAL Hx Chronic Kidney Disease: No - ENDOCRINE/METABOLIC Hx Endocrine Disorders: Yes Hx Diabetes Mellitus Type 2: Yes - HEMATOLOGICAL/ONCOLOGICAL Hx Anemia: No Hx Human Immunodeficiency Virus (HIV): No Hx Sickle Cell Disease: No - INTEGUMENTARY Hx Dermatological Problems: No Hx Basil Cell: No Hx Krishnamurthy: No Hx Cellulitis: No Hx Eczema: No Hx Melanoma: No Hx Psoriasis: No Hx Squamous Cell: No - MUSCULOSKELETAL/RHEUMATOLOGICAL Hx Arthritis: Yes Hx Falls: No Hx Fractures: No Hx Osteoporosis: No Hx Rheumatoid Arthritis: No - GASTROINTESTINAL Hx Crohn's Disease: No Hx Diverticulitis: No Hx Gall Bladder Disease: Yes Hx Gastritis: No Hx Pancreatitis: No - GENITOURINARY/GYNECOLOGICAL Hx Sexually Transmitted Disorders: No - PSYCHIATRIC Hx Anxiety: Yes Hx Bipolar Disorder: No Hx Depression: No Hx Post Traumatic Stress Disorder: No Hx Schizophrenia: No Hx Substance Use: No - SURGICAL HISTORY Hx Appendectomy: No Hx Carotid Endarterectomy: No Hx Cholecystectomy: Yes Hx Coronary Artery Bypass Graft: No Hx Coronary Stent: Yes (5 stents) Hx Tonsillectomy: No Other/Comment: right finger (2nd digit )amputation - ANESTHESIA Hx Anesthesia: Yes Hx Anesthesia Reactions: No Hx Malignant Hyperthermia: No Meds Allergies/Adverse Reactions: Allergies Allergy/AdvReac Type Severity Reaction Status Date / Time Penicillins Allergy RASH Verified 07/08/17 00:10 Physical Exam - Constitutional Appears: Well, Non-toxic, No Acute Distress - Head Exam Head Exam: ATRAUMATIC, NORMAL INSPECTION, NORMOCEPHALIC - Eye Exam Eye Exam: EOMI, Normal appearance, PERRL Pupil Exam: NORMAL ACCOMODATION, PERRL - ENT Exam ENT Exam: Mucous Membranes Moist, Normal Exam, Normal Oropharynx - Neck Exam Neck exam: Positive for: Normal Inspection - Respiratory Exam Respiratory Exam: Clear to Auscultation Bilateral, NORMAL BREATHING PATTERN - Cardiovascular Exam Cardiovascular Exam: REGULAR RHYTHM, RRR, +S1, +S2 - GI/Abdominal Exam GI & Abdominal Exam: Normal Bowel Sounds, Soft. absent: Tenderness - Extremities Exam Extremities exam: Positive for: full ROM, normal capillary refill, normal inspection, pedal pulses present - Back Exam Back exam: NORMAL INSPECTION - Neurological Exam Neurological exam: Alert, CN II-XII Intact, Normal Gait, Oriented x3, Reflexes Normal - Psychiatric Exam Psychiatric exam: Normal Affect, Normal Mood - Skin Skin Exam: Dry, Intact, Normal Color, Warm Results - Vital Signs Recent Vital Signs: Last Vital Signs Temp 97.5 F L 07/08/17 09:51 Pulse 81 07/08/17 09:51 Resp 19 07/08/17 09:51 BP 97/57 L 07/08/17 09:51 Pulse Ox 96 07/08/17 11:02 - Labs Result Diagrams: 07/08/17 05:40 07/08/17 05:40 Labs: Laboratory Results - last 24 hr 07/08/17 07/08/17 07/08/17 01:30 01:30 01:30 WBC 16.9 H RBC 4.37 L Hgb 12.6 Hct 37.4 MCV 85.4 MCH 28.7 MCHC 33.6 RDW 13.8 Plt Count 168 MPV 8.7 Neut % (Auto) 85.3 H Lymph % (Auto) 5.3 L Webb % (Auto) 8.3 Eos % (Auto) 0.5 Baso % (Auto) 0.6 Neut # (Auto) 14.4 H Lymph # (Auto) 0.9 L Webb # (Auto) 1.4 H Eos # (Auto) 0.1 Baso # (Auto) 0.1 Neutrophils % (Manual) 82 H Band Neutrophils % 3 H Lymphocytes % (Manual) 7 L Reactive Lymphs % 2 H Monocytes % (Manual) 5 Myelocytes % 1 H Platelet Estimate Normal Large Platelets Present Hypochromasia (manual) Moderate Stomatocytes Slight Sodium 139 Potassium 4.3 Chloride 99 Carbon Dioxide 30 Anion Gap 14 BUN 21 H Creatinine 1.2 Est GFR ( Amer) > 60 Est GFR (Non-Af Amer) 59 POC Glucose (mg/dL) Random Glucose 118 H Lactic Acid 1.0 Calcium 9.1 Total Bilirubin 0.5 AST 30 ALT 30 Alkaline Phosphatase 50 Troponin I 0.0500 NT-Pro-B Natriuret Pep 695 Total Protein 7.6 Albumin 4.2 Globulin 3.3 Albumin/Globulin Ratio 1.3 Influenza Typ A,B (EIA) 07/08/17 07/08/17 07/08/17 01:30 01:41 05:40 WBC 17.3 H RBC 4.41 Hgb 12.6 Hct 38.1 MCV 86.2 MCH 28.6 MCHC 33.2 RDW 13.8 Plt Count 166 MPV Neut % (Auto) Lymph % (Auto) Webb % (Auto) Eos % (Auto) Baso % (Auto) Neut # (Auto) Lymph # (Auto) Webb # (Auto) Eos # (Auto) Baso # (Auto) Neutrophils % (Manual) Band Neutrophils % Lymphocytes % (Manual) Reactive Lymphs % Monocytes % (Manual) Myelocytes % Platelet Estimate Large Platelets Hypochromasia (manual) Stomatocytes Sodium Potassium Chloride Carbon Dioxide Anion Gap BUN Creatinine Est GFR ( Amer) Est GFR (Non-Af Amer) POC Glucose (mg/dL) 106 Random Glucose Lactic Acid Calcium Total Bilirubin AST ALT Alkaline Phosphatase Troponin I NT-Pro-B Natriuret Pep Total Protein Albumin Globulin Albumin/Globulin Ratio Influenza Typ A,B (EIA) Negative for flu a/b 07/08/17 07/08/17 07/08/17 05:40 05:46 10:41 WBC RBC Hgb Hct MCV MCH MCHC RDW Plt Count MPV Neut % (Auto) Lymph % (Auto) Webb % (Auto) Eos % (Auto) Baso % (Auto) Neut # (Auto) Lymph # (Auto) Webb # (Auto) Eos # (Auto) Baso # (Auto) Neutrophils % (Manual) Band Neutrophils % Lymphocytes % (Manual) Reactive Lymphs % Monocytes % (Manual) Myelocytes % Platelet Estimate Large Platelets Hypochromasia (manual) Stomatocytes Sodium 138 Potassium 4.7 Chloride 101 Carbon Dioxide 27 Anion Gap 15 BUN 19 Creatinine 1.1 Est GFR ( Amer) > 60 Est GFR (Non-Af Amer) > 60 POC Glucose (mg/dL) 157 H 287 H Random Glucose 198 H Lactic Acid Calcium 8.7 Total Bilirubin 0.3 AST 29 ALT 30 Alkaline Phosphatase 53 Troponin I NT-Pro-B Natriuret Pep Total Protein 7.3 Albumin 4.1 Globulin 3.3 Albumin/Globulin Ratio 1.3 Influenza Typ A,B (EIA) Assessment & Plan (1) Bacterial pneumonia Assessment and Plan: levaquin duonebs `fever control phenergen mucinex Status: Acute (2) Flu Assessment and Plan: tamiflu Status: Acute (3) DVT prophylaxis Assessment and Plan: scd and ae hose ambulation Status: Acute (4) DM2 (diabetes mellitus, type 2) Assessment and Plan: achs fsbg w/o coverage, home meds, diet control Status: Chronic Decision To Admit - Pt Status Changed To: Hospital Disposition Of: Inpatient - Admit Certification Admit to Inpatient:: After my assessment, the patient will require hospitalization for at least two midnights. This is because of the severity of symptoms shown, intensity of services needed, and/or the medical risk in this patient being treated as an outpatient. - . Bed Request Type: Med/Surg Admitting Physician: [place]ico Farooq
[2017-07-08] MEDS ORDERED: Alum-Mag Hydrox-Simethicone Susp (30 mL) PO PRN (15:43)
--- NOTE | 2017-07-08 18:05 | CARD ---
APPROVED REPORT EKG Measurement Heart [id number] <Conclusion> Normal sinus rhythm Left axis deviation Moderate voltage criteria for LVH, may be normal variant Abnormal ECG
[2017-07-09] MEDS: Albuterol-Ipratrop 3 mg / 0.5 (3 ml) UD INH SCH ×3 (04:03→11:08)
[2017-07-09 07:29] VITALS: BP 107/60; PULSE 79; RESP 20; TEMP 97.7; O2SAT 95
--- NOTE | 2017-07-09 07:34 | CP.PCM.DIS ---
Provider - Provider Date of Admission: 07/08/17 00:47 Attending physician: Chico Farooq MD Primary care physician: Roshan Downey Time Spent in preparation of Discharge (in minutes): 15 Diagnosis - Discharge Diagnosis (1) Bacterial pneumonia Status: Acute (2) Flu Status: Acute (3) DVT prophylaxis Status: Acute (4) DM2 (diabetes mellitus, type 2) Status: Chronic Hospital Course - Lab Results Lab Results: Micro Results 07/08/17 06:15 Blood-Venous Blood Culture - Preliminary NO GROWTH AFTER 24 HOURS 07/08/17 01:30 Blood-Venous Blood Culture - Preliminary NO GROWTH AFTER 24 HOURS Most Recent Lab Values WBC 17.3 K/uL (4.8-10.8) H 07/08/17 05:40 RBC 4.41 Mil/uL (4.40-5.90) 07/08/17 05:40 Hgb 12.6 g/dL (12.0-18.0) 07/08/17 05:40 Hct 38.1 % (35.0-51.0) 07/08/17 05:40 MCV 86.2 fl (80.0-94.0) 07/08/17 05:40 MCH 28.6 pg (27.0-31.0) 07/08/17 05:40 MCHC 33.2 g/dL (33.0-37.0) 07/08/17 05:40 RDW 13.8 % (11.5-14.5) 07/08/17 05:40 Plt Count 166 K/uL (130-400) 07/08/17 05:40 MPV 8.7 fl (7.2-11.7) 07/08/17 01:30 Neut % (Auto) 85.3 % (50.0-75.0) H 07/08/17 01:30 Lymph % (Auto) 5.3 % (20.0-40.0) L 07/08/17 01:30 Bryan % (Auto) 8.3 % (0.0-10.0) 07/08/17 01:30 Eos % (Auto) 0.5 % (0.0-4.0) 07/08/17 01:30 Baso % (Auto) 0.6 % (0.0-2.0) 07/08/17 01:30 Neut # (Auto) 14.4 K/uL (1.8-7.0) H 07/08/17 01:30 Lymph # (Auto) 0.9 K/uL (1.0-4.3) L 07/08/17 01:30 Bryan # (Auto) 1.4 K/uL (0.0-0.8) H 07/08/17 01:30 Eos # (Auto) 0.1 K/uL (0.0-0.7) 07/08/17 01:30 Baso # (Auto) 0.1 K/uL (0.0-0.2) 07/08/17 01:30 Neutrophils % (Manual) 82 % (42-75) H 07/08/17 01:30 Band Neutrophils % 3 % (0-2) H 07/08/17 01:30 Lymphocytes % (Manual) 7 % (20-50) L 07/08/17 01:30 Reactive Lymphs % 2 % (0-0) H 07/08/17 01:30 Monocytes % (Manual) 5 % (0-10) 07/08/17 01:30 Myelocytes % 1 % (0-0) H 07/08/17 01:30 Platelet Estimate Normal (NORMAL) 07/08/17 01:30 Large Platelets Present 07/08/17 01:30 Hypochromasia (manual) Moderate 07/08/17 01:30 Stomatocytes Slight 07/08/17 01:30 Sodium 138 mmol/l (132-148) 07/08/17 05:40 Potassium 4.7 MMOL/L (3.6-5.0) 07/08/17 05:40 Chloride 101 mmol/L (98-107) 07/08/17 05:40 Carbon Dioxide 27 mmol/L (22-30) 07/08/17 05:40 Anion Gap 15 (10-20) 07/08/17 05:40 BUN 19 mg/dl (9-20) 07/08/17 05:40 Creatinine 1.1 mg/dl (0.8-1.5) 07/08/17 05:40 Est GFR ( Amer) > 60 07/08/17 05:40 Est GFR (Non-Af Amer) > 60 07/08/17 05:40 POC Glucose (mg/dL) 173 mg/dL (65-110) H 07/09/17 05:21 Random Glucose 198 mg/dL (75-110) H 07/08/17 05:40 Lactic Acid 1.0 MMOL/L (0.7-2.1) 07/08/17 01:30 Calcium 8.7 mg/dL (8.4-10.2) 07/08/17 05:40 Total Bilirubin 0.3 mg/dl (0.2-1.3) 07/08/17 05:40 AST 29 U/L (17-59) 07/08/17 05:40 ALT 30 U/L (21-72) 07/08/17 05:40 Alkaline Phosphatase 53 U/L (38-126) 07/08/17 05:40 Troponin I 0.0500 ng/mL (0.00-0.120) 07/08/17 01:30 NT-Pro-B Natriuret Pep 695 pg/ml (0-900) 07/08/17 01:30 Total Protein 7.3 G/DL (6.3-8.2) 07/08/17 05:40 Albumin 4.1 g/dL (3.5-5.0) 07/08/17 05:40 Globulin 3.3 gm/dL (2.2-3.9) 07/08/17 05:40 Albumin/Globulin Ratio 1.3 (1.0-2.1) 07/08/17 05:40 Influenza Typ A,B (EIA) Negative for flu a/b (NEGATIVE) 07/08/17 01:30 - Hospital Course Hospital Course: levaquin, ivf, tamiflu, cough suppressant fever control Discharge Exam - Head Exam Head Exam: ATRAUMATIC, NORMAL INSPECTION, NORMOCEPHALIC Discharge Plan - Discharge Medications Prescriptions: Albuterol/Ipratropium [Duoneb 3 mg/0.5 mg (3 ml) UD] 3 ml INH RQ4 #100 neb Aluminum Hydroxide/Magnesium [Maalox Plus 30 ml] 30 ml PO Q6 PRN #250 ml PRN Reason: Indigestion / Heartburn Levofloxacin [Levaquin] 500 mg PO DAILY #7 tablet Oseltamivir [Tamiflu Cap] 75 mg PO BID #6 cap predniSONE [predniSONE Tab] 50 mg PO DAILY #3 tab - Follow Up Plan Condition: FAIR Disposition: HOME/ ROUTINE Instructions: Community-Acquired Pneumonia, Adult (DC) Additional Instructions: CBC after 1 week 'final dx-clinical flu, pna f/u rmg tuesday, rted prn, meds per med rec leukocytosis likely r/t steroids as pt is clinically improving. cbc 1 wk. further tx asindicated. hydration Referrals: Roshan Downey MD [Primary Care Provider] -
--- NOTE | 2017-07-09 08:30 | CP.PCM.PN ---
Subjective - Date & Time of Evaluation Date of Evaluation: 07/09/17 Time of Evaluation: 08:29 - Subjective Subjective: pt doing well, askingto be dc home. nof/c, n/v/d. antolin po. amb w/ steady gait. am labs pending. Objective - Vital Signs/Intake and Output Vital Signs (last 24 hours): Temp Pulse Resp BP Pulse Ox 97.7 F 79 20 107/60 95 07/09/17 07:29 07/09/17 07:29 07/09/17 07:29 07/09/17 07:29 07/09/17 07:29 - Medications Medications: Current Medications Acetaminophen (Tylenol 325mg Tab) 650 mg PO Q4 PRN PRN Reason: Pain, moderate (4-7) Last Admin: 07/08/17 19:52 Dose: 650 mg Acetaminophen (Tylenol 325mg Tab) 650 mg PO Q6 PRN PRN Reason: Fever >100.4 F Al Hydrox/Mg Hydrox/Simethicone (Maalox Plus 30 Ml) 30 ml PO Q6 PRN PRN Reason: Indigestion / Heartburn Last Admin: 07/08/17 16:16 Dose: 30 ml Albuterol/Ipratropium (Duoneb 3 Mg/0.5 Mg (3 Ml) Ud) 3 ml INH RQ4 [facility] Last Admin: 07/09/17 07:07 Dose: 3 ml Aspirin (Ecotrin) 81 mg PO DAILY [facility] Last Admin: 07/08/17 09:42 Dose: 81 mg Atorvastatin Calcium (Lipitor) 40 mg PO HS [facility] Last Admin: 07/08/17 21:27 Dose: 40 mg Fenofibrate (Tricor) 145 mg PO DAILY [facility] Last Admin: 07/08/17 09:43 Dose: 145 mg Guaifenesin/Dextromethorphan (Mucinex-Dm 600-30 Mg) 2 tab PO BID [facility] Last Admin: 07/08/17 17:16 Dose: 2 tab Levofloxacin/Dextrose (Levaquin 500mg) 500 mg in 100 mls @ 100 mls/hr IVPB DAILY [facility] PRN Reason: Protocol Last Admin: 07/08/17 09:33 Dose: 100 mls/hr Insulin Human Regular (Humulin R) 0 units SC ACHS [facility] PRN Reason: Protocol Last Admin: 07/08/17 21:29 Dose: Not Given Methylprednisolone (Solu-Medrol) 60 mg IV Q12 [facility] Last Admin: 07/08/17 21:28 Dose: 60 mg Naproxen (Naproxen) 500 mg PO Q12H PRN PRN Reason: bodyaches Oseltamivir Phosphate (Tamiflu Cap) 75 mg PO BID [facility] PRN Reason: Protocol Last Admin: 07/08/17 16:16 Dose: 75 mg Pantoprazole Sodium (Protonix Ec Tab) 40 mg PO DAILY [facility] Last Admin: 07/08/17 09:42 Dose: 40 mg Promethazine HCl (Phenergan Syrup) 6.25 mg PO Q6 PRN PRN Reason: Cough Sitagliptin Phosphate (Januvia) 50 mg PO DAILY [facility] Last Admin: 07/08/17 09:42 Dose: 50 mg Valsartan (Diovan) 40 mg PO DAILY [facility] Last Admin: 07/08/17 09:50 Dose: Not Given - Labs Labs: 07/08/17 05:40 07/08/17 05:40 - Constitutional Appears: Well, Non-toxic, No Acute Distress - Head Exam Head Exam: ATRAUMATIC, NORMAL INSPECTION, NORMOCEPHALIC - Eye Exam Eye Exam: EOMI, Normal appearance, PERRL Pupil Exam: NORMAL ACCOMODATION, PERRL - ENT Exam ENT Exam: Mucous Membranes Moist, Normal Exam - Neck Exam Neck Exam: Full ROM, Normal Inspection. absent: Lymphadenopathy - Respiratory Exam Respiratory Exam: Clear to Ausculation Bilateral, NORMAL BREATHING PATTERN - Cardiovascular Exam Cardiovascular Exam: REGULAR RHYTHM, RRR, +S1, +S2. absent: Murmur - GI/Abdominal Exam GI & Abdominal Exam: Soft, Normal Bowel Sounds. absent: Tenderness - Extremities Exam Extremities Exam: Full ROM, Normal Capillary Refill, Normal Inspection. absent : Joint Swelling, Pedal Edema - Back Exam Back Exam: NORMAL INSPECTION - Neurological Exam Neurological Exam: Alert, Awake, CN II-XII Intact, Normal Gait, Oriented x3 - Psychiatric Exam Psychiatric exam: Normal Affect, Normal Mood - Skin Skin Exam: Dry, Intact, Normal Color, Warm Assessment and Plan (1) Bacterial pneumonia Status: Acute (2) Flu Status: Acute (3) DVT prophylaxis Status: Acute (4) DM2 (diabetes mellitus, type 2) Status: Chronic - Assessment and Plan (Free Text) Assessment: (1) Bacterial pneumonia Assessment and Plan: loren dinero `fever control phenergen mucinex Status: Acute (2) Flu Assessment and Plan: tamiflu Status: Acute (3) DVT prophylaxis Assessment and Plan: scd and ae hose ambulation Status: Acute (4) DM2 (diabetes mellitus, type 2) Assessment and Plan: achs fsbg w/o coverage, home meds, diet control Status: Chronic
[2017-07-09] MEDS: levoFLOXacin 500 mg in D5W 500 MG/100 ML BAG IVPB SCH (08:37)
[2017-07-09] MEDS: Insulin Regular 100 units/ml SC SCH (08:41)
[2017-07-09] MEDS: Pantoprazole 40 mg EC Tab PO SCH (08:43)
[2017-07-09 09:25] LABS: HEMOGLOBIN 12.1 g/dL (12.0-18.0); LYMPH # 0.5 K/uL (1.0-4.3); LYMPH % 3.1 % (20.0-40.0); MEAN CELL VOLUME 84.8 fl (80.0-94.0); MEAN CORPUSCULAR HEMOGLOBIN 28.2 pg (27.0-31.0); MEAN CORPUSCULAR HGB CONC 33.3 g/dL (33.0-37.0); MEAN PLATELET VOLUME 9.2 fl (7.2-11.7); MONO # 0.8 K/uL (0.0-0.8); MONO % 4.7 % (0.0-10.0); NEUT % 92.2 % (50.0-75.0); NRBC % 0.1 % (0.0-0.0); PLATELET COUNT 196 K/uL (130-400); RED CELL DISTRIBUTION WIDTH 13.6 % (11.5-14.5); WHITE BLOOD COUNT 16.3 K/uL (4.8-10.8)
[2017-07-09 09:35] LABS: ALB/GLOB RATIO 1.2 (1.0-2.1); ALBUMIN 3.9 g/dL (3.5-5.0); ALT/SGPT 29 U/L (21-72); AST/SGOT 24 U/L (17-59); BLOOD UREA NITROGEN 25 mg/dl (9-20); CALCIUM 9.2 mg/dL (8.4-10.2); GFR AFRICAN-AMERICAN > 60; GFR NON-AFRICAN AMERICAN 59
[2017-07-09] MEDS: guaiFENesin-DM 600-30 mg ER Tab PO SCH (09:59)
[2017-07-09 12:33] LABS: BANDS 1 % (0-2); LYMPHOCYTE 2 % (20-50); MONOCYTE 2 % (0-10); NEUTROPHIL 95 % (42-75); TOTAL CELLS COUNTED 100
[2017-07-09 12:35] LABS: PLATELET ESTIMATE NORMAL (NORMAL)
--- NOTE | 2017-07-11 09:09 | PQF CHF ---
This form is a permanent part of the medical record DR. SYED MILES: PATIENT WITH HISTORY OF CHF. COULD YOU CLARIFY THE TYPE CHF IF KNOWN. Clarification of your documentation is requested to better reflect the severity of illness and intensity of treatment of your patient. Indicators present [x] Diagnosis of CHF and/or history of CHF [] BNP > 200 [] Imaging Finding of Pulmonary Edema /Pleural Effusions [] Fluid/Volume Overload [] Pitting edema [] Ejection Fraction < 40% (Indicative of Systolic Heart Failure) [] Ejection Fraction > 40% (Indicative of Diastolic Heart Failure) [] Dyspnea / Orthopenea / Paroxysmal Nocturnal Dyspnea [] Other: Location in the medical record that reflects the above clinical findings: [] Treatment Provided: [] PHYSICIAN'S RESPONSE Based on your medical judgment of the clinical indicators outlined above, are you treating this patient for a known or suspected: [] Acute CHF [] Systolic [] Diastolic [] Combined [x] Chronic CHF [x] Systolic [] Diastolic [] Combined [] Acute on Chronic CHF []Systolic [] Diastolic [] Combined [] CHF due hypertension [] Acute systolic []Chronic systolic [] Acute/ chronic systolic [] Other, please indicate: [] [] If Unable to Determine, please check the box, sign and date. Present On Admission (POA) Indicator: [] Present at the time of admission [] Not present at the time of admission [] Clinically Undetermined In responding to this query, please exercise your independent professional judgment. The fact that a question is asked does not imply that any particular answer is desired or expected. Thank you for your clarification on this documentation. If you have any questions please call:[ ] * Thank you, * COREY ROSENTHAL [ [phone] skein bander KARSTEN
--- NOTE | 2017-07-11 11:06 | PQF GENQUE ---
Dr. Coleman, Please provide the underlying diagnosis causing the patient's documented signs/ symptoms as follows: V/S tab in the EMR: Temp: 101.3->101.3-> 99.5 Pulse; 97-> 95->98->98 O2 sat: 91 ->87 WBC: 16.9->17.3->16.3 left shift CXR: Impression: Questionable bilateral patchy infiltrates. OR; Unable to determine OR: Other explanation of clinical findings ER note in draft : ED with complaints of flu-like symptoms x2 days and has a PMH : HTN, DM , asthma, and CHF. (+) fever, cough, headache, chills, body aches, generalized weakness, malaise, and vocal hoarseness. ROS: Constitutional: Positive for: Fever, Chills, Weakness Cardiovascular: tachycardia 0045 CXR: bibasilar infiltrates indicative of PNA. Read by provider. * Levaquin 750mg in 150mL IVPB * ADMISSION ORDER: INPATIENT MED/SURG under Dr. Farooq for influenza and PNA. 0230 Labs reviewed: significant for elevated WBC count. Flu swab: negative Provider has strong clinical suspicion for influenza due to clinical presentation and will treat accordingly with tamiflu. Await : Impression; not listed yet H and P;admirttted for pna and clinical flu Assessment Plan : (1) Bacterial pneumonia : levaquin duonebs `fever control phenergen mucinex SAcute (2) Flu :tamiflu : Acute (3) DVT prophylaxis scd and ae hose ambulation : Acute (4) DM2 (diabetes mellitus, type 2) :achs fsbg w/o coverage, home meds, diet control : Chronic This form is a permanent part of the medical record Clarification of your documentation is requested to better reflect the severity of illness and intensity of treatment of your patient. Indicators present [] Specify: [] [] Specify: [] [] Specify: [] [] Specify: [] Location in the medical record that reflects the above clinical findings: [] Treatment Provided: [] PHYSICIAN'S RESPONSE Based on your medical judgment of the clinical indicators outlined above please clarify the following: [x] Practitioner response bacterial b/l lower lobe pna [] If unable to determine, please check the box, sign and date. Present On Admission (POA) Indicator: [x] Present at the time of admission [] Not present at the time of admission [] Clinically Undetermined In responding to this query, please exercise your independent professional judgment. The fact that a question is asked does not imply that any particular answer is desired or expected. Thank you for your clarification on this documentation. If you have any questions please call. * Thank you, Shawnee Gustafson RN ext. #[phone] MTDD
== END 2017-07-09 11:11 | disposition home health service (06) | DRG 194 ==
LOC: H.ER 00:04 → H.ERHOLD 00:47 → H.MEDSURG1 03:09
PROVIDERS: ADMIT Family Medicine; ATTEND Family Medicine
PROC: 3E0F7GC Introduction of Other Therapeutic Substance into Respiratory Tract, Via Natural or Artificial Opening (ICD-10-PCS; principal; 2017-07-08)
DX: J15.9 Unspecified bacterial pneumonia (principal); I50.22 Chronic systolic (congestive) heart failure; I11.0 Hypertensive heart disease with heart failure; E11.9 Type 2 diabetes mellitus without complications; E78.00 Pure hypercholesterolemia, unspecified; I25.10 Atherosclerotic heart disease of native coronary artery without angina pectoris; J11.08 Influenza due to unidentified influenza virus with specified pneumonia; J11.1 Influenza due to unidentified influenza virus with other respiratory manifestations; J43.9 Emphysema, unspecified; Z79.82 Long term (current) use of aspirin; Z86.73 Personal history of transient ischemic attack (TIA), and cerebral infarction without residual deficits; Z87.01 Personal history of pneumonia (recurrent); Z95.5 Presence of coronary angioplasty implant and graft; F41.9 Anxiety disorder, unspecified; G43.909 Migraine, unspecified, not intractable, without status migrainosus; H26.9 Unspecified cataract; K82.9 Disease of gallbladder, unspecified; M19.90 Unspecified osteoarthritis, unspecified site; Z79.84 Long term (current) use of oral hypoglycemic drugs; Z79.899 Other long term (current) drug therapy

== ENCOUNTER 2017-11-17 21:37 | Emergency (ER) | payer MEDICARE, OTHER ==
[2017-11-17 21:37] VITALS: BMI 31.1
[2017-11-17 21:43] VITALS: RESP 16
[2017-11-17] MEDS ORDERED: Albuterol-Ipratrop 3 mg / 0.5 (3 ml) UD INH STA ×2 (22:09)
--- NOTE | 2017-11-17 22:27 | ED PDOC ---
HPI: General Adult Time Seen by Provider: 11/17/17 21:49 Chief Complaint (Nursing): Flu-like Symptoms History Per: Patient History/Exam Limitations: no limitations Current Symptoms Are (Timing): Still Present Additional Complaint(s): Hx of CAD, COPD, DM, former smoker presenting with cough, nasal congestion x 15 days. States that his cough is getting progressively worse, went to his PMD Dr. Centeno at [place] 5 days ago and was put on clarithromycin which he states he's been compliant with but states he is still having fevers but didn't measure temperature at home. States he used his ventolin inhaler today and took APAP prior to arrival. States his cough was productive of yellow phlegm initially but now is white and states he has "bloody" nasal discharge as well. No sick contacts. States he has not smoked a cigarette in 3 months, even though he still smells like it. Of note, patient never took full dose of bactrim after being discharged from hospital in July for PNA. States also that his "bones" hurt all over his body. Past Medical History Reviewed: Historical Data, Nursing Documentation, Vital Signs Vital Signs: Last Vital Signs Temp 97.9 F 11/18/17 01:41 Pulse 95 H 11/18/17 01:41 Resp 16 11/18/17 01:41 BP 122/61 11/18/17 01:41 Pulse Ox 95 11/18/17 01:48 - Medical History PMH: Anxiety, Arthritis, Asthma, CAD, COPD, CVA, Diabetes (type II), Emphysema, Gall Bladder Disease, HTN, Hypercholesterolemia, Migraine, Pneumonia Denies: Alzheimer's Disease, Anemia, Atrial Fibrillation, Bipolar Disorder, Bronchitis, Cardia Arrhythmia, CHF, Crohn's Disease, Dementia, Depression, Diverticulitis, Fractures, Gastritis, HIV, Hyperthyroidism, Hypothyroidism, Kidney Stones, Mitral Valve Prolapse, Multiple Sclerosis, Osteoporosis, Pancreatitis, Paranoia, Parkinson's Disease, Peripheral Edema, Post Traumatic Stress Disorder, Pulmonary Embolism, Chronic Kidney Disease, Rheumatoid Arthritis, Schizophrenia, Seizures, Sickle Cell Disease, Sexually Transmitted Disease, Sleep Apnea, TIA - Surgical History Surgical History: Cholecystectomy, Coronary Stent (5 stents) Denies: Appendectomy, CABG, Carotid Endarterectomy, Pacemaker, Tonsillectomy - Family History Family History: States: Unknown Family Hx - Immunization History Hx Tetanus Toxoid Vaccination: Yes (2015 per previous documentation) Hx Influenza Vaccination: Yes - Home Medications Home Medications: Ambulatory Orders Medication Instructions Recorded Aspirin [Aspirin EC] 81 mg PO DAILY 05/19/15 Sitagliptin Phosphate [Januvia] 50 mg PO DAILY 05/19/15 Valsartan [Diovan] 40 mg PO DAILY 05/19/15 Atorvastatin [Lipitor] 40 mg PO DAILY 10/02/16 Fenofibrate Nanocrystallized 145 mg PO DAILY 10/02/16 [Tricor] Pantoprazole Sodium [Protonix] 40 mg PO DAILY 10/02/16 Azithromycin [Zithromax] 250 mg PO DAILY #4 tab 10/03/16 Promethazine [Phenergan Syrup] 6.25 mg PO Q6 PRN #250 ml 10/03/16 guaiFENesin/Dextromethorphan 2 tab PO BID #30 tab 10/03/16 [Mucinex-DM 600-30 mg] Naproxen [Naprosyn] 500 mg PO Q12H #20 tab 03/11/17 Albuterol/Ipratropium [Duoneb 3 3 ml INH RQ4 #100 neb 07/09/17 mg/0.5 mg (3 ml) UD] Aluminum Hydroxide/Magnesium 30 ml PO Q6 PRN #250 ml 07/09/17 [Maalox Plus 30 ml] Levofloxacin [Levaquin] 500 mg PO DAILY #7 tablet 07/09/17 Oseltamivir [Tamiflu Cap] 75 mg PO BID #6 cap 07/09/17 predniSONE [predniSONE Tab] 50 mg PO DAILY #3 tab 07/09/17 Benzonatate [Tessalon Perle] 100 mg PO TID #20 capsule 11/18/17 Doxycycline Hyclate 100 mg PO DAILY #7 cap 11/18/17 Prednisone [Deltasone] 40 mg PO DAILY 3 Days #6 tablet 11/18/17 - Allergies Allergies/Adverse Reactions: Allergies Allergy/AdvReac Type Severity Reaction Status Date / Time Penicillins Allergy RASH Verified 07/08/17 00:10 Review of Systems ROS Statement: Except As Marked, All Systems Reviewed And Found Negative Constitutional: Positive for: Fever, Chills, Sweats Respiratory: Positive for: Cough Physical Exam - Reviewed Nursing Documentation Reviewed: Yes Vital Signs Reviewed: Yes - Physical Exam Appears: Positive for: Well (Coughing), Non-toxic, No Acute Distress Head Exam: Positive for: ATRAUMATIC, NORMAL INSPECTION, NORMOCEPHALIC Skin: Positive for: Normal Color, Warm, DRY Eye Exam: Positive for: EOMI, Normal appearance, PERRL ENT: Positive for: Normal ENT Inspection Neck: Positive for: Normal, Painless ROM Cardiovascular/Chest: Positive for: Regular Rate, Rhythm Respiratory: Positive for: Crackles (few scatterd), Wheezing (End-expiraotry) Gastrointestinal/Abdominal: Positive for: Normal Exam, Soft. Negative for: Tenderness Back: Positive for: Normal Inspection Extremity: Positive for: Normal ROM Neurologic/Psych: Positive for: Alert, Oriented - Laboratory Results Result Diagrams: 11/17/17 22:43 11/17/17 22:43 - ECG O2 Sat by Pulse Oximetry: 95 Pulse Ox Interpretation: Normal Medical Decision Making Medical Decision MakinPM A/P: Hx of COPD, DM, CAD presenting with persistent cough and fever -patient is well appearing, normal vitals, afebrile currently but patient did take APAP prior to arrival -ddx: copd exacerbation, bronchitis, pneumonia, viral infection -will get labs, give nebs, steroids, and re-eval 01:45 Upon reevaluation patient is feeling better, is medically stable, and requires no further treatment in the ED at this time. No white count, no PNA on xray. Will change clarithromycin to doxycycline. Adivsed patient to followup with Joan in 1 - 2 days. Counseling was provided and all questions were answered regarding diagnosis and need for follow up with PCP. There is agreement to discharge plan. Return if symptoms persist or worsen. Disposition - Clinical Impression Clinical Impression: Cough - Patient ED Disposition Is Patient to be Admitted: No Counseled Patient/Family Regarding: Studies Performed, Diagnosis, Need For Followup, Rx Given - Disposition Referrals: Roshan Downey MD [Family Provider] - Disposition: Routine/Home Disposition Time: 01:45 Condition: IMPROVED Prescriptions: Benzonatate [Tessalon Perle] 100 mg PO TID #20 capsule Doxycycline Hyclate 100 mg PO DAILY #7 cap Prednisone [Deltasone] 40 mg PO DAILY 3 Days #6 tablet Instructions: Cough in Adults Forms: [facility] ([place]ander) Print Language: EQUATORIAL GUINEAN
[2017-11-17 22:49] LABS: BASO # 0.1 K/uL (0.0-0.2); BASO % 1.2 % (0.0-2.0); EOS # 0.3 K/uL (0.0-0.7); EOS % 3.8 % (0.0-4.0); HEMOGLOBIN 13.3 g/dL (12.0-18.0); LYMPH # 1.5 K/uL (1.0-4.3); LYMPH % 22.2 % (20.0-40.0); MEAN CELL VOLUME 83.8 fl (80.0-94.0); MEAN CORPUSCULAR HEMOGLOBIN 28.7 pg (27.0-31.0); MEAN CORPUSCULAR HGB CONC 34.2 g/dL (33.0-37.0); MEAN PLATELET VOLUME 8.6 fl (7.2-11.7); MONO # 0.8 K/uL (0.0-0.8); NEUT # 4.2 K/uL (1.8-7.0); NEUT % 61.8 % (50.0-75.0); NRBC % 0.1 % (0.0-0.0); RBC 4.64 Mil/uL (4.40-5.90); RED CELL DISTRIBUTION WIDTH 13.7 % (11.5-14.5); WHITE BLOOD COUNT 6.9 K/uL (4.8-10.8)
[2017-11-17 22:49] LABS: VENOUS BLOOD GAS BASE EXCESS 1.4 mmol/L (0.0-2.0); VENOUS BLOOD GAS PCO2 52 mmHg (40-60); VENOUS BLOOD GAS PO2 33 mm/Hg (30-55); VENOUS BLOOD PH 7.34 (7.32-7.43)
[2017-11-17] MEDS ORDERED: Albuterol-Ipratrop 3 mg / 0.5 (3 ml) UD ONE (23:05)
[2017-11-17 23:06] LABS: CALCIUM 9.5 mg/dL (8.4-10.2)
[2017-11-18] MEDS ORDERED: Sodium Chloride 0.9% 1,000 ML IV STA (00:33)
[2017-11-18] MEDS ORDERED: Promethazine DM 12.5 mg-30 mg/10 ml Syrup PO STA (01:17)
[2017-11-18 01:41] VITALS: BP 122/61; PULSE 95; TEMP 97.9
[2017-11-18 01:48] VITALS: O2SAT 95
--- NOTE | 2017-11-18 10:14 | RAD ---
Date of service: 11/17/2017 HISTORY: hx of copd, persistent cough and fevers COMPARISON: Comparison is made with the previous study 07/08/2017 TECHNIQUE: Chest PA and lateral FINDINGS: LUNGS: No active pulmonary disease. PLEURA: No significant pleural effusion identified. No pneumothorax apparent. CARDIOVASCULAR: Normal. OSSEOUS STRUCTURES: No significant abnormalities. VISUALIZED UPPER ABDOMEN: Normal. OTHER FINDINGS: None. IMPRESSION: No active disease.
== END 2017-11-18 01:56 | disposition home or self-care (01) ==
LOC: H.ER 21:37
DX: R05 Cough (principal); J44.9 Chronic obstructive pulmonary disease, unspecified; E11.9 Type 2 diabetes mellitus without complications; E78.00 Pure hypercholesterolemia, unspecified; I10 Essential (primary) hypertension; I25.10 Atherosclerotic heart disease of native coronary artery without angina pectoris; Z79.82 Long term (current) use of aspirin; Z86.73 Personal history of transient ischemic attack (TIA), and cerebral infarction without residual deficits; Z87.891 Personal history of nicotine dependence; Z88.0 Allergy status to penicillin; Z95.5 Presence of coronary angioplasty implant and graft; F41.9 Anxiety disorder, unspecified
CPT/HCPCS: 71046; 80048; 82803; 85025; 87040; 94640; 96374; 96375; 99283; J1885; J2930

== ENCOUNTER 2018-02-08 10:17 | Emergency (ER) | payer MEDICARE, OTHER ==
[2018-02-08 10:30] VITALS: BMI 31.0
[2018-02-08] MEDS ORDERED: Sodium Chloride 0.9% 1,000 ML IV STA (12:02)
--- NOTE | 2018-02-08 12:27 | RAD ---
Date of service: 02/08/2018 HISTORY: fall COMPARISON: 01/24/2018 FINDINGS: LUNGS: Prior left basal referenced infiltrate has cleared. PLEURA: No significant pleural effusion identified, no pneumothorax apparent. CARDIOVASCULAR: Normal. OSSEOUS STRUCTURES: Thoracic spondylosis-similar VISUALIZED UPPER ABDOMEN: Normal. OTHER FINDINGS: None. IMPRESSION: Interval clearance of the prior left small infiltrate-prior referenced pneumonia. No interval pathology noted
[2018-02-08 12:40] LABS: BASO # 0.1 K/uL (0.0-0.2); EOS # 0.4 K/uL (0.0-0.7); EOS % 4.5 % (0.0-4.0); MEAN CELL VOLUME 85.6 fl (80.0-94.0); MEAN CORPUSCULAR HEMOGLOBIN 29.4 pg (27.0-31.0); MEAN CORPUSCULAR HGB CONC 34.3 g/dL (33.0-37.0); MEAN PLATELET VOLUME 8.5 fl (7.2-11.7); MONO # 0.8 K/uL (0.0-0.8); MONO % 9.5 % (0.0-10.0); NEUT # 5.3 K/uL (1.8-7.0); NRBC % 0.1 % (0.0-0.0); RBC 4.41 Mil/uL (4.40-5.90); RED CELL DISTRIBUTION WIDTH 14.9 % (11.5-14.5); WHITE BLOOD COUNT 8.6 K/uL (4.8-10.8)
--- NOTE | 2018-02-08 12:41 | RAD ---
PROCEDURE: Radiographs of the right humerus. HISTORY: trauma COMPARISON: None. FINDINGS: BONES: . No fracture or focal lesion. SOFT TISSUES: Normal. OTHER FINDINGS: Right acromioclavicular hypertrophic arthrosis. Lesser right glenohumeral arthrosis. Cystic subcortical changes over greater tuberosity. Medial elbow sided spurring. IMPRESSION: No fracture or lytic lesion. Multifocal arthrosis as above.
--- NOTE | 2018-02-08 12:46 | ED PDOC ---
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 states on Tuesday he tripped over a box on the floor and fell forward injuring his R upper arm, R side of abdomen, and lower back. Also states he struck his head onto the floor but did not lose consciousness but has been feeling dizzy. Denies numbness, tingling, vomiting, neck pain, incontinence, hematuria, dysuria, N/V/D, leg pain, elbow pain, shoulder pain, chest pain, SOB. <Dago Stiles E - Last Filed: 02/08/18 16:52> <Jas Kyle M - Last Filed: 02/09/18 16:49> - HPI Time Seen by Provider: 02/08/18 10:46 Chief Complaint (Nursing): Trauma Against Medical Advice - AMA Patient Left Against Medical Advice: The patient declines admission to the hospital and wishes to leave the Emergency Department. This action is against my medical advice. This decision was made with informed refusal. The patient was told that admission to the hospital is necessary. Explanation of the reasons why were discussed. The risks of leaving were explained to the patient and include, but are not limited to, worsening of known or currently unknown conditions, permanent disability and from undiagnosed or untreated conditions. The patient has the capacity to make this informed decision and understands my explanation of the current medical problem and risks of leaving. The patient voluntarily accepts these risks and signed an AMA form documenting our conversation. The patient was given the opportunity to ask questions and reconsider. The patient was encouraged to return to the Emergency Department at any time for further care. <Dago Stiles E - Last Filed: 02/08/18 16:52> - AMA Patient Left Against Medical Advice: The patient declines admission to the hospital and wishes to leave the Emergency Department. This action is against my medical advice. This decision was made with informed refusal. The patient was told that admission to the hospital is necessary. Explanation of the reasons why were discussed. The risks of leaving were explained to the patient and include, but are not limited to, worsening of known or currently unknown conditions, permanent disability and from undiagnosed or untreated conditions. The patient has the capacity to make this informed decision and understands my explanation of the current medical problem and risks of leaving. The patient voluntarily accepts these risks and signed an AMA form documenting our conversation. The patient was given the opportunity to ask questions and reconsider. The patient was encouraged to return to the Emergency Department at any time for further care. <Jas Kyle - Last Filed: 02/09/18 16:49> Past Medical History Reviewed: Historical Data, Nursing Documentation, Vital Signs Vital Signs: Last Vital Signs Temp 97.5 F L 02/08/18 10:29 Pulse 75 02/08/18 10:29 Resp BP 144/77 02/08/18 10:29 Pulse Ox 95 02/08/18 10:29 - Medical History PMH: Anxiety, Arthritis, Asthma, CAD, COPD, CVA, Diabetes (type II), Emphysema, Gall Bladder Disease, HTN, Hypercholesterolemia, Migraine, Pneumonia Denies: Atrial Fibrillation, Kidney Stones, Chronic Kidney Disease - Surgical History Surgical History: Cholecystectomy, Coronary Stent (5 stents), Endoscopy - Family History Family History: States: No Known Family Hx - Immunization History Hx Tetanus Toxoid Vaccination: Yes Hx Influenza Vaccination: Yes <Dago Stiles - Last Filed: 02/08/18 16:52> Vital Signs: Last Vital Signs Temp 98.1 F 02/08/18 16:58 Pulse 68 02/08/18 16:58 Resp 15 02/08/18 16:58 BP 135/84 02/08/18 16:58 Pulse Ox 97 02/08/18 16:58 <Jas Kyle - Last Filed: 02/09/18 16:49> - Home Medications Home Medications: Ambulatory Orders Medication Instructions Recorded RX: Aspirin [Aspirin EC] 81 mg PO DAILY 05/19/15 RX: Atorvastatin [Lipitor] 40 mg PO HS 10/02/16 RX: Fenofibrate Nanocrystallized 145 mg PO DAILY 10/02/16 [Tricor] RX: Glimepiride [amaRYL] 1 tab PO DAILY 01/18/18 RX: Metoprolol Succinate 25 mg PO DAILY 01/18/18 RX: Tamsulosin [Flomax] 0.4 mg PO Q12 01/18/18 RX: Albuterol Sulfate [Ventolin 2 puff IH Q6 PRN 01/24/18 Hfa] RX: Ergocalciferol (Vitamin D2) 50,000 unit PO TH 01/24/18 [Vitamin D2] RX: Finasteride [Proscar] 5 mg PO DAILY 01/24/18 RX: Fluticasone/Salmeterol [Advair 1 puff IH Q12 01/24/18 250-50 Diskus] RX: Montelukast [Singulair] 10 mg PO HS 01/24/18 RX: Mv,Min10/Folic Acid/D3/Ala/Lut 1 tab PO DAILY 01/24/18 [Strovite One Caplet] RX: Pantoprazole Sodium [Protonix] 40 mg PO BID 01/24/18 RX: SITagliptin [Januvia] 50 mg PO DAILY 01/24/18 RX: valACYclovir [Valtrex] 1 gm PO Q8 01/24/18 Methylprednisolone [Medrol Dose 4 mg PO DAILY #21 mg 01/26/18 Pack (21 tabs)] RX: Moxifloxacin [Avelox] 400 mg PO DAILY 7 Days #7 tab 01/26/18 - Allergies Allergies/Adverse Reactions: Allergies Allergy/AdvReac Type Severity Reaction Status Date / Time Penicillins Allergy RASH Verified 01/24/18 15:06 Review of Systems ROS Statement: Except As Marked, All Systems Reviewed And Found Negative Gastrointestinal: Positive for: Abdominal Pain Musculoskeletal: Positive for: Back Pain Neurological: Positive for: Headache, Dizziness <Dago Stiles - Last Filed: 02/08/18 16:52> Physical Exam - Reviewed Nursing Documentation Reviewed: Yes Vital Signs Reviewed: Yes - Physical Exam Appears: Positive for: Well, Non-toxic, No Acute Distress Head Exam: Positive for: ATRAUMATIC, NORMAL INSPECTION, NORMOCEPHALIC Skin: Positive for: Normal Color, Warm. Negative for: Rash Eye Exam: Positive for: Normal appearance, EOMI, PERRL. Negative for: Periorbital swelling, Periorbital tenderness ENT: Positive for: Normal ENT Inspection, TM Is/Are (no hemotympanum) Neck: Positive for: Normal, Painless ROM Cardiovascular/Chest: Positive for: Regular Rate, Rhythm, Chest Non Tender Respiratory: Positive for: Normal Breath Sounds. Negative for: Respiratory Distress Gastrointestinal/Abdominal: Positive for: Normal Exam, Soft, Tenderness (RUQ and RLQ tenderness with large circular faint ecchymosis). Negative for: Distended Back: Positive for: Normal Inspection, Vertebral Tenderness (lumbosacral area). Negative for: L CVA Tenderness, R CVA Tenderness Extremity: Positive for: Normal ROM, Other (R mid-humerus with ecchymosis and tenderness; no R shoulder, R elbow tenderness, swelling, or deformity) Neurologic/Psych: Positive for: Alert, Oriented (x3), Gait (steady, unassisted). Negative for: Aphasia, Facial Droop <Dago Stiles - Last Filed: 02/08/18 16:52> - Laboratory Results Result Diagrams: 02/08/18 12:20 02/08/18 12:20 - ECG O2 Sat by Pulse Oximetry: 95 - Progress ED Course And Treament: Labs, morphine 2mg IV, zofran 4mg IV, CT head w/o contrast, CT abd/pelvis w/ IV contrast, R humerus x-ray, LS spine w/o contrast, IV NS hydration. Pt. kept NPO. As per RN pt. refused morphine, zofran, and IV fluids. <Dago Stiles - Last Filed: 02/08/18 16:52> - Laboratory Results Result Diagrams: 02/08/18 12:20 02/08/18 12:20 <Jas Kyle - Last Filed: 02/09/18 16:49> Disposition - Patient ED Disposition Is Patient to be Admitted: No - Disposition Disposition: Against Medical Advice Disposition Time: 16:49 <Dago Stiles - Last Filed: 02/08/18 16:52> <Jas Kyle - Last Filed: 02/09/18 16:49> - Clinical Impression Clinical Impression: Head injury, Abdominal contusion, Acute electrocardiogram changes, Left against medical advice, Back injury - Disposition Condition: STABLE Additional Instructions: IMANI ROBLES, thank you for letting us take care of you today. Your provider was Jas Kyle MD and you were treated for FALL INJURY, BACK PAIN, ARM INJURY. The emergency medical care you received today was directed at your acute symptoms. If you were prescribed any medication, please fill it and take as directed. It may take several days for your symptoms to resolve. Return to the Emergency Department if your symptoms worsen, do not improve, or if you have any other problems. Please contact your doctor or call one of the physicians/clinics you have been referred to that are listed on the Patient Visit Information form that is included in your discharge packet. Bring any paperwork you were given at discharge with you along with any medications you are taking to your follow up visit. Our treatment cannot replace ongoing medical care by a primary care provider outside of the emergency department. Thank you for allowing the [facility] team to be part of your care today. If you had an X-Ray or CT scan: A Radiologist will review the ED reading if any change in treatment is needed we will contact you. If you had a blood, urine, or wound culture: It will take several days for the results, if any change in treatment is needed we will contact you. If you had an STI test: It will take 48 hours for the results. Please call after 1 week if you have not heard back. Instructions: Leaving Against Medical Advice Forms: Workspace (Lithuanian) Print Language: SOUTH AFRICAN Addendum Addendum: 02/09/18 16:49 Reviewed PA chart and agree. <Jas Kyle M - Last Filed: 02/09/18 16:49>
[2018-02-08 12:47] LABS: INR 0.8
[2018-02-08 12:49] LABS: PARTIAL THROMBOPLASTIN TIME 30.5 Seconds (25.6-37.1)
[2018-02-08 12:56] LABS: ALB/GLOB RATIO 1.4 (1.0-2.1); ALBUMIN 4.4 g/dL (3.5-5.0); ALT/SGPT 40 U/L (21-72); AST/SGOT 31 U/L (17-59); BLOOD UREA NITROGEN 21 mg/dl (9-20); CALCIUM 9.5 mg/dL (8.4-10.2); GFR NON-AFRICAN AMERICAN 59
[2018-02-08 13:00] LABS: PROTHROMBIN TIME 9.1 Seconds (9.8-13.1)
[2018-02-08] MEDS ORDERED: Sodium Chloride 0.9% 50 ML IV ONE (14:06)
[2018-02-08] MEDS ORDERED: Iohexol 300 100 ML IJ ONE (14:06)
--- NOTE | 2018-02-08 15:16 | CT ---
Date of service: 02/08/2018 PROCEDURE: CT HEAD WITHOUT CONTRAST. HISTORY: trauma COMPARISON: Noncontrast head CT 03/11/2017. TECHNIQUE: Axial computed tomography images were obtained through the head/brain without intravenous contrast. Radiation dose: Total exam DLP = 846.89 mGy-cm. This CT exam was performed using one or more of the following dose reduction techniques: Automated exposure control, adjustment of the mA and/or kV according to patient size, and/or use of iterative reconstruction technique. FINDINGS: HEMORRHAGE: No intracranial hemorrhage. BRAIN: The smith-white matter differentiation is well preserved. There is no mass effect or definitive edema pattern appreciated including the cortex. There is proportional expansion of the ventriculosulcal and cisternal spaces however in a pattern most compatible with diffuse cerebral atrophy. No suspicious extra-axial fluid collection is identified in the midline brain anatomy appears grossly nonfocal as imaged. No significant interval change appreciated. VENTRICLES: Unremarkable. No hydrocephalus. CALVARIUM: No destructive bony lesion or displaced fracture identified including through the skullbase. PARANASAL SINUSES: Unremarkable as visualized. No significant inflammatory changes. MASTOID AIR CELLS: Unremarkable as visualized. No inflammatory changes. OTHER FINDINGS: None. IMPRESSION: Stable limited age-related neuro degenerative change are identified without acute interval findings by standard CT criteria.
--- NOTE | 2018-02-08 15:39 | CT ---
Date of service: 02/08/2018 PROCEDURE: CT Lumbar Spine without contrast HISTORY: s/p fall COMPARISON: Abdomen and pelvis CT with contrast 08/13/2015. TECHNIQUE: Axial computed tomography images were obtained of the lumbar spine without the use of intravenous contrast. Coronal and sagittal reformatted images were created and reviewed. Radiation dose: Total exam DLP = 1345.45 mGy-cm. This CT exam was performed using one or more of the following dose reduction techniques: Automated exposure control, adjustment of the mA and/or kV according to patient size, and/or use of iterative reconstruction technique. FINDINGS: VERTEBRAE: Minimal anterior wedging of the L1 vertebral body is identified in the interval which may reflect a limited fracture but is of indeterminate age though is a new change since 08/13/2015. Minimal similar fracture affecting T12 and T11 is reiterated. No spondylolisthesis or destructive bony lesion. There is a minimal level scoliosis of the upper lumbar spine. Advanced multilevel degenerative disc changes are seen are identified with increased interval vacuum disc changes identified as well as disc height loss at L5-S1 as well as at L2-3 with new interval vacuum disc changes present at L1-2 and L4-5. Disc osteophyte changes are prominent at anterior margins of L1-2 as well and mild at L2-3 though likely slightly increased at both levels. Multilevel facet joint degenerative arthropathy is identified seen worst at mid and inferior lumbar levels. Prevertebral and paraspinal soft tissues reflect only aortic and iliac arterial system atherosclerosis. DISCS/SPINAL CANAL/NEURAL FORAMINA: L1-2: Limited disc osteophyte complex is appreciated encroaching lateral recesses bilaterally as well as facet joint degenerative arthropathy without significant generalized central canal stenosis appreciated. This is a slight interval change when only limited disc bulging was previously seen. Mild bilateral neural foraminal stenosis is encountered. L2-3: Increased stenosis seen the central canal with a mild generalized central stenosis caused by disc osteophyte complex combining with facet joint degenerative change. Mild right and moderate left degenerative neural foraminal stenoses are identified. L3-4: Mild central canal stenosis is seen on a degenerative basis of facet degenerative change and limited generalized disc bulging. Borderline bilateral neural foraminal stenoses identified. L4-5: A moderate central canal stenosis results from prominent circumferential disc bulge and gross facet joint degenerative arthropathy with [id number] bilateral neural foraminal stenosis appreciated on degenerative basis. L5-S1: Minimal disc osteophyte complex adverse the ventral thecal sac and encroaching descending bilateral S1 nerve roots without significant generalized central stenosis occurring. No significant neural foraminal stenosis at the left. Asymmetric osteophytes mildly stenosis right neural foramen. No definite disc herniation throughout the examination. OTHER FINDINGS: None. IMPRESSION: 1. Very mild L1 anterior wedge compression fracture of indeterminate age. Mild T11-T12 chronic compression fractures identified. 2. No severe stenosis throughout the exam or definite disc herniation. 3. Multilevel degenerative neural foraminal and central canal stenoses are identified seen worst at L4-5 where moderate central canal stenosis is seen on a degenerative basis. 4. Limited scoliosis upper lumbar spine.
--- NOTE | 2018-02-08 15:55 | CT ---
Date of service: 02/08/2018 PROCEDURE: CT Abdomen and Pelvis with contrast HISTORY: R side of abd with ecchymosis; s/p fall COMPARISON: Abdomen and pelvis CT with contrast 08/13/2015. TECHNIQUE: Following the intravenous administration of iodinated contrast material, a CT examination of the abdomen and pelvis performed from the domes of the diaphragms to the symphysis pubis with reformatted datasets provided in axial, sagittal and coronal planes. Oral contrast was not administered as per referring physician request. Coronal and sagittal reformats were generated. contrast dose: Omnipaque 300, 95 cc Radiation dose: Total exam DLP = 722.13 mGy-cm. This CT exam was performed using one or more of the following dose reduction techniques: Automated exposure control, adjustment of the mA and/or kV according to patient size, and/or use of iterative reconstruction technique. FINDINGS: LOWER THORAX: Unremarkable. LIVER: Liver appears upper limits normal size without focal mass or intrahepatic biliary dilatation present. GALLBLADDER AND BILE DUCTS: Prior cholecystectomy reiterated. PANCREAS: Unremarkable. No gross lesion or ductal dilatation. SPLEEN: Unremarkable. ADRENALS: Unremarkable. No mass. KIDNEYS AND URETERS: Unremarkable. No hydronephrosis. No solid mass. VASCULATURE: Unremarkable. No aortic aneurysm. BOWEL: Evaluation of the gastrointestinal tract is limited due to the lack of oral contrast administration. Prior antritis/duodenitis resolved. Mildly prominent fecal loading is appreciate which may reflect constipation. Sigmoid and left colonic segmental diverticular changes are present without diverticulitis. No bowel obstruction. Small bowel is largely collapsed. The stomach is collapsed. APPENDIX: Normal appendix. PERITONEUM: Unremarkable. No free fluid. No free air. LYMPH NODES: Unremarkable. No enlarged lymph nodes. BLADDER: Unremarkable. REPRODUCTIVE: Unremarkable. BONES: Advanced multilevel degenerative spondylosis in the upper lumbar spine is identified which may include small central disc herniation at L2-3 with extruded disc posterior to the upper endplate of L3. OTHER FINDINGS: None. IMPRESSION: No definitive acute abdominal or pelvic findings. Left colonic diverticulosis without diverticulitis. Upper limits normal liver size once again. Prior cholecystectomy reiterated. Resolution of prior pattern of antritis/duodenitis.
--- NOTE | 2018-02-08 16:30 | CARD ---
APPROVED REPORT Date of service: 02/08/2018 EKG Measurement Heart [id number] <Conclusion> Sinus bradycardia Nonspecific ST abnormality Abnormal ECG
[2018-02-08 16:59] VITALS: BP 135/84; PULSE 68; RESP 15; TEMP 98.1; O2SAT 97
== END 2018-02-08 16:59 | disposition left against medical advice (07) ==
LOC: H.ER 10:17
DX: S09.90XA Unspecified injury of head, initial encounter (principal); S30.1XXA Contusion of abdominal wall, initial encounter; S39.92XA Unspecified injury of lower back, initial encounter; W01.0XXA Fall on same level from slipping, tripping and stumbling without subsequent striking against object, initial encounter; Y92.89 Other specified places as the place of occurrence of the external cause; R94.31 Abnormal electrocardiogram [ECG] [EKG]; Z79.84 Long term (current) use of oral hypoglycemic drugs; Z86.73 Personal history of transient ischemic attack (TIA), and cerebral infarction without residual deficits; Z95.5 Presence of coronary angioplasty implant and graft
CPT/HCPCS: 70450; 71045; 72131; 73060; 74177; 80053; 82948; 84484; 85025; 85610; 85730; 86850; 86900; 93005; 99285; Q9967

== ENCOUNTER 2018-09-24 21:12 | Emergency (ER) | payer OTHER ==
[2018-09-24 21:56] VITALS: BMI 31.1
[2018-09-24 21:59] VITALS: BP 129/76; PULSE 87; RESP 18; TEMP 97.9; O2SAT 98
--- NOTE | 2018-09-25 00:06 | ED PDOC ---
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 Since the past 2 weeks, patient noticed "blackness" underneath both his toes with no trauma. He called his property disposal manager, Dr. Jiang who referred him to the ED for further evaluation as he is a diabetic patient. Patient also reports 3 weeks ago, he used new tennis shoes that were too small and too tight. Otherwise, he denies numbness, tingling, rash, fever, trauma or ulcers on his feet. Past Medical History Reviewed: Historical Data, Nursing Documentation, Vital Signs Vital Signs: Last Vital Signs Temp 97.9 F 09/24/18 21:55 Pulse 87 09/24/18 21:55 Resp 18 09/24/18 21:55 BP 129/76 09/24/18 21:55 Pulse Ox 98 09/24/18 21:55 Primary Care Provider: Allen Horne - Medical History PMH: Anxiety, Arthritis, Asthma, CAD, COPD, CVA, Diabetes (type II), Emphysema, Gall Bladder Disease, HTN, Hypercholesterolemia, Migraine, Pneumonia Denies: Atrial Fibrillation, Kidney Stones, Chronic Kidney Disease - Surgical History Surgical History: Cholecystectomy, Coronary Stent (5 stents), Endoscopy - Family History Family History: States: No Known Family Hx - Immunization History Hx Tetanus Toxoid Vaccination: Yes Hx Influenza Vaccination: Yes - Home Medications Home Medications: Ambulatory Orders Medication Instructions Recorded Aspirin [Aspirin EC] 81 mg PO DAILY 05/19/15 Atorvastatin [Lipitor] 40 mg PO HS 10/02/16 Fenofibrate Nanocrystallized 145 mg PO DAILY 10/02/16 [Tricor] Glimepiride [amaRYL] 1 tab PO DAILY 01/18/18 Metoprolol Succinate 25 mg PO DAILY 01/18/18 Tamsulosin [Flomax] 0.4 mg PO Q12 01/18/18 Albuterol Sulfate [Ventolin Hfa] 2 puff IH Q6 PRN 01/24/18 Ergocalciferol (Vitamin D2) 50,000 unit PO TH 01/24/18 [Vitamin D2] Finasteride [Proscar] 5 mg PO DAILY 01/24/18 Fluticasone/Salmeterol [Advair 1 puff IH Q12 01/24/18 250-50 Diskus] Montelukast [Singulair] 10 mg PO HS 01/24/18 Mv,Min10/Folic Acid/D3/Ala/Lut 1 tab PO DAILY 01/24/18 [Strovite One Caplet] Pantoprazole Sodium [Protonix] 40 mg PO BID 01/24/18 SITagliptin [Januvia] 50 mg PO DAILY 01/24/18 valACYclovir [Valtrex] 1 gm PO Q8 01/24/18 Methylprednisolone [Medrol Dose 4 mg PO DAILY #21 mg 01/26/18 Pack (21 tabs)] Moxifloxacin [Avelox] 400 mg PO DAILY 7 Days #7 tab 01/26/18 Tiotropium Br/Olodaterol HCl 2 puff IH DAILY #1 mist.inhal 09/25/18 [Stiolto Respimat Inhal [place]] - Allergies Allergies/Adverse Reactions: Allergies Allergy/AdvReac Type Severity Reaction Status Date / Time Penicillins Allergy RASH Verified 09/24/18 21:55 Review of Systems ROS Statement: Except As Marked, All Systems Reviewed And Found Negative Constitutional: Negative for: Fever, Other (trauma ) Musculoskeletal: Positive for: Other (bilateral great toe pain ) Skin: Negative for: Rash Neurological: Negative for: Numbness, Other (tingling ) Physical Exam - Reviewed Nursing Documentation Reviewed: Yes Vital Signs Reviewed: Yes - Physical Exam Appears: Positive for: Well, Non-toxic, No Acute Distress Skin: Positive for: Normal Color, Warm, Dry. Negative for: Pallor Pulses-Dorsalis Pedis (L): 2+ Pulses-Dorsalis Pedis (R): 2+ Extremity: Positive for: Normal ROM (bilateral extremities are warm with no erythema or ulcers), Capillary Refill (less than 2 seconds ), Other (bilateral great toes with small subungual hematoma with tenderness to both toe nails ). Negative for: Pedal Edema, Calf Tenderness, Deformity Neurological/Psych: Positive for: Awake, Alert, Normal Tone, Oriented (x3) - ECG O2 Sat by Pulse Oximetry: 98 (RA) Pulse Ox Interpretation: Normal Medical Decision Making Medical Decision Making: Time: 2239 Plan: Foot 3 views BI [RAD] Glucose, Blood, POC Tramadol 50mg PROCEDURE: Performed by the emergency provider Consent: Informed consent, after discussion of the risks, benefits, and alternatives to the procedure was obtained. Procedure Site: bilateral great toes Procedure: both great toe nails were cauterized and blood was evacuated with good resolution to pain Post-procedure: The patient tolerated the procedure well with no immediate complications. DSD applied. Bleeding stopped. Scribe Attestation: Documented by Ruby Finley, acting as a scribe for Dago Stiles PA-C. Provider Scribe Attestation: All medical record entries made by the Scribe were at my direction and personally dictated by me. I have reviewed the chart and agree that the record accurately reflects my personal performance of the history, physical exam, medical decision making, and the department course for this patient. I have also personally directed, reviewed, and agree with the discharge instructions and disposition. Disposition - Clinical Impression Clinical Impression: Subungual hematoma - Patient ED Disposition Is Patient to be Admitted: No - Disposition Referrals: Allen Horne [Primary Care Provider] - Podiatry Clinic [Outside] Disposition: Routine/Home Disposition Time: 00:35 Condition: IMPROVED Additional Instructions: FOLLOW UP WITH ROVING TELLER FOR FURTHER EVALUATION RETURN TO ED IMMEDIATELY IF SYMPTOMS WORSEN IMANI ROBLES, thank you for letting us take care of you today. Your provider was Betty Chaves MD and you were treated for B/L LEG PAIN. The emergency medical care you received today was directed at your acute symptoms. If you were prescribed any medication, please fill it and take as directed. It may take several days for your symptoms to resolve. Return to the Emergency Department if your symptoms worsen, do not improve, or if you have any other problems. Please contact your doctor or call one of the physicians/clinics you have been referred to that are listed on the Patient Visit Information form that is included in your discharge packet. Bring any paperwork you were given at discharge with you along with any medications you are taking to your follow up v wmt. Our treatment cannot replace ongoing medical care by a primary care provider outside of the emergency department. Thank you for allowing the [facility] team to be part of your care today. If you had an X-Ray or CT scan: A Radiologist will review the ED reading if any change in treatment is needed we will contact you. If you had a blood, urine, or wound culture: It will take several days for the results, if any change in treatment is needed we will contact you. If you had an STI test: It will take 48 hours for the results. Please call after 1 week if you have not heard back. Prescriptions: Tiotropium Br/Olodaterol HCl [Stiolto Respimat Inhal [place]] 2 puff IH DAILY #1 mist.inhal Instructions: Metatarsalgia (DC) Print Language: TAMAZIGHT
[2018-09-25] MEDS ORDERED: Povidone Iodine Oint 10% Foilpak UD ONE (00:26)
--- NOTE | 2018-09-25 09:28 | RAD ---
Date of service: 09/24/2018 PROCEDURE: Bilateral Feet Radiographs. HISTORY: pain COMPARISON: None. TECHNIQUE: 6 views obtained. FINDINGS: BONES: Right Foot: Normal. No fracture. Left Foot: Normal. No fracture. JOINTS: Right Foot: Normal. No osteoarthritis. Left Foot: Normal. No osteoarthritis. SOFT TISSUES: Right Foot: Normal. Left Foot: Normal. OTHER FINDINGS: None. IMPRESSION: Normal radiographs of the feet.
== END 2018-09-25 01:05 | disposition home or self-care (01) ==
LOC: H.ER 21:12
DX: S90.212A Contusion of left great toe with damage to nail, initial encounter (principal); S90.211A Contusion of right great toe with damage to nail, initial encounter; E11.9 Type 2 diabetes mellitus without complications; I10 Essential (primary) hypertension; J44.9 Chronic obstructive pulmonary disease, unspecified; Z79.84 Long term (current) use of oral hypoglycemic drugs; Z79.82 Long term (current) use of aspirin; Z86.73 Personal history of transient ischemic attack (TIA), and cerebral infarction without residual deficits; Z95.5 Presence of coronary angioplasty implant and graft; Z88.0 Allergy status to penicillin; I25.10 Atherosclerotic heart disease of native coronary artery without angina pectoris; E78.00 Pure hypercholesterolemia, unspecified